=== PATIENT | male | born 1960 | race Caucasian/White ===

== ENCOUNTER 2019-07-17 19:38 | Emergency (ER) | payer OTHER, SELFPAY ==
[2019-07-17 19:40] VITALS: BP 186/101; PULSE 71; RESP 16; TEMP 36.7; O2SAT 100
[2019-07-17 21:53] VITALS: RESP 16
--- NOTE | 2019-07-17 22:16 | ED.URI ---
HPI - URI/Sore Throat General Chief Complaint: Upper Respiratory Infection Stated Complaint: fever, cough Time Seen by Provider: 07/17/19 22:16 Source: patient Mode of arrival: ambulatory Limitations: no limitations History of Present Illness HPI Narrative: A 59 y/o male presents to the ED with c/o a cough for 1 day. Pt states that he and his returned from a cruise to [place] and the [facility] on Sunday (4 days ago). Pt's became sick with a cough and a fever and then he became sick with similar symptoms shortly after. He reports fatigue, but denies N/V, a fever, rhinorrhea, SOB, wheezing, and smoking. Onset (ago): day(s) (1) Context: sick contacts () Related Data Allergies Allergy/AdvReac Type Severity Reaction Status Date / Time No Known Allergies Allergy Unknown Verified 07/17/19 21:57 Review of Systems Review of Systems: All systems reviewed & are unremarkable except as noted in HPI and below Constitutional: Constitutional: Reports fatigue and Denies fever(s) ENT: Comments: Denies: rhinorrhea Respiratory: Respiratory: Reports cough, Denies dyspnea and Denies wheezing Gastrointestinal: Gastrointestinal: Denies nausea and Denies vomiting PMFSH Past Medical History Medical History (Updated 07/18/19 @ 00:00 by Ashwin Mooney) GERD (gastroesophageal reflux disease) Wears glasses Surgical History Surgical History (Updated 07/17/19 @ 22:27 by Miriam Prabhakar) H/O inguinal hernia repair bilateral H/O: vasectomy Hx of cholecystectomy Family History Family History Mother Hypertension Social History Social History (Updated 07/17/19 @ 22:28 by Miriam Prabhakar) Smoking status: Never smoker Alcohol intake: never Comments PCP: Dr. Cline Exam Narrative: Exam Narrative: GENERAL: Well-appearing, well-nourished, and in no acute distress. HEAD: Normocephalic, atraumatic EYES: PERRLA and EOMI, conjunctiva clear without discharge EARS: TM's clear bilaterally without erythema or dullness NOSE: Nares clear, no rhinorrhea or epistaxis THROAT:Mucous membranes moist, Oropharynx normal without erythema, exudate, peritonsillar swelling or fluctuance NECK: Supple, without lymphadenopathy or mass RESPIRATORY: No respiratory distress, Airway patent, Respirations non-labored, Clear to auscultation without rales, rhonchi or wheeze HEART: Regular rate and rhythm. No murmur heard. Normal peripheral pulses. ABDOMEN: Soft, nontender, nondistended, normal active bowel sounds. No masses. No rebound or guarding, No organomegaly. EXTREMITIES: No edema, normal strength with full range of motion. SKIN: Warm, dry, normal color without rash NEURO: Alert and oriented x3. CN 2-12 grossly intact. No focal deficits. PSYCH: Normal mood and affect. Course Course Emergency Course: Patient presented with early signs of flu. His was found to be positive for influenza in ER today. PAtient is negative but will start him on tamiflu. PAtient understands and he is agreeable. Vital Signs Vital signs: Vital Signs Temperature 98.0 F 07/17/19 19:40 Pulse Rate 71 07/17/19 19:40 Respiratory Rate 16 07/17/19 19:40 Blood Pressure 186/101 H 07/17/19 19:40 Pulse Oximetry 100 07/17/19 19:40 Temperature 98.0 F 07/17/19 19:40 Pulse Rate 68 07/17/19 22:39 Respiratory Rate 20 07/17/19 22:39 Blood Pressure 167/100 H 07/17/19 22:39 Pulse Oximetry 99 07/17/19 22:39 MDM - URI/Sore Throat Lab Data Labs: Influenza A Screen Negative Reference Range: Negative Influenza B Screen Negative Reference Range: Negative Discharge Plan Discharge Clinical Impression: Viral infection Patient Disposition: Home, Self-Care Condition: Stable Instructions: Antibiotic Form, Influenza (ED), Viral Syndrome (ED) Additional Instructions: Today you were will be started on medication t
[2019-07-17 22:39] VITALS: BP 167/100; PULSE 68; RESP 20; O2SAT 99
== END 2019-07-17 22:40 | disposition home or self-care (01) ==
PROVIDERS: Emergency Provider General Practice; PCP Family Medicine Adolescent Medicine
DX: B34.9 Viral infection, unspecified (principal); K21.9 Gastro-esophageal reflux disease without esophagitis
CPT/HCPCS: 87804; 99283

== ENCOUNTER 2019-07-23 14:24 | Inpatient (IN) | payer OTHER, SELFPAY ==
[2019-07-23] VITALS (10 sets, daily range): BP systolic 168–194; BP diastolic 89–115; PULSE 83–104; RESP 16–23; TEMP 37.1–37.3; O2SAT 97–99; BMI 28.0
--- NOTE | ~2019-07-23 | CT_ITS ---
EXAMINATION: CT chest wo con DATE: 07/23/2019 15:37 INDICATION: Nodule. Worsening cough. TECHNIQUE: Computed tomography (CT) of the chest was performed without intravenous contrast. The dose -length product was 285.07 mGy-cm. Automated exposure control and iterative reconstruction technique were employed. COMPARISON: Chest x-ray dated 07/23/2019 FINDINGS: Heart size is normal. No thoracic lymphadenopathy. There is gynecomastia. No significant pl eural or pericardial effusion. There is a densely calcified granuloma in the right lower lobe account ing for the nodule seen on chest x-ray. There is a solid lingular mass with peripheral air bronchogra ms measuring 3.7 x 2.2 cm greatest axial dimension. There are patchy groundglass opacities throughout both lungs, suspicious for pneumonia. There is an 8 mm right lower lobe nodule, image 72. No endobro nchial lesions. Status post cholecystectomy. The upper abdomen is unremarkable. No osteolytic or oste oblastic lesions are present. IMPRESSION: 1. Solid 3.7 x 2.2 cm lingular mass, concerning for bronchogenic carcinoma. 8 mm right lower lobe nod ule. Cannot exclude metastatic disease. 2: Patchy areas of groundglass consolidation in both lungs, compatible with pneumonia. Reviewed, dictated and finalized at location A. IMPRESSION: 1. Solid 3.7 x 2.2 cm lingular mass, concerning for bronchogenic carcinoma. 8 m m right lower lobe nodule. Cannot exclude metastatic disease. 2: Patchy areas of groundglass consolidation in both lungs, compatible with pn eumonia.
--- NOTE | ~2019-07-23 | XR_ITS ---
EXAMINATION: XR chest 2V DATE: 07/23/2019 15:13 INDICATION: Cough. TECHNIQUE: Frontal and lateral views of the chest were obtained on 3 radiographs. COMPARISON: Chest single view 10/30/2010, CT abdomen and pelvis 05/06/2006 FINDINGS: There are airspace opacities in right lower lung zone and left midlung zone. There is a 1.5 cm nodule in right lower lobe overlying the diaphragm on the frontal view. No pleural effusion or pn eumothorax. The heart size is normal. Surgical clips in the right upper quadrant are likely from chol ecystectomy. IMPRESSION: 1. 1.5 cm nodule in right lung lower lobe suspicious for primary bronchogenic carcinoma. Noncontrast chest CT is recommended. I called this result to Eloy Aaron on 07/23/19 at 15:19. 2. Airspace opacities in right lower lung zone and left midlung zone suspicious for pneumonia. Reviewed, dictated and finalized at location A. IMPRESSION: 1. 1.5 cm nodule in right lung lower lobe suspicious for primary bronchogenic c arcinoma. Noncontrast chest CT is recommended. I called this result to Eloy moore on 07/23/19 at 15:19. 2. Airspace opacities in right lower lung zone and left midlung zone suspicious for pneumonia.
[2019-07-23] MEDS: ALBUTEROL SULFATE NEB 2.5 MG/0.5 ML INH 5 MG INHALATION ×2 (15:45→20:28)
[2019-07-23] MEDS: IPRATROPIUM BR 0.02% INH SOLN 0.5 MG/2.5 ML VIAL INHALATION ×2 (15:46→20:28)
--- NOTE | 2019-07-23 15:57 | ED.URI ---
HPI - URI/Sore Throat General Chief Complaint: Upper Respiratory Infection Stated Complaint: Worse cough Time Seen by Provider: 07/23/19 14:48 Source: patient Mode of arrival: ambulatory Limitations: no limitations History of Present Illness HPI Narrative: Patient is a 59-year-old male who presents with continued difficulty with breathing with productive cough congestion rhinorrhea sore throat body aches patient was initially seen in the emergency department and diagnosed with influenza patient has been taking [id number] medications and finished his Tamiflu with no improvement patient on arrival to emergency department in no distress patient notes he is unable to get anything up with his cough. Patient notes his is also currently being treated for pneumonia. Patient was seen on the fifth and notes that he was treated as a presumptive positive. Notes that his was positive for influenza. Patient did recently return from a cruise in the [place] Related Data Allergies Allergy/AdvReac Type Severity Reaction Status Date / Time No Known Allergies Allergy Unknown Verified 07/17/19 21:57 Review of Systems Review of Systems: All systems reviewed & are unremarkable except as noted in HPI and below PMFSH Past Medical History Medical History GERD (gastroesophageal reflux disease) Wears glasses Surgical History Surgical History H/O inguinal hernia repair bilateral H/O: vasectomy Hx of cholecystectomy Social History Social History Smoking status: Never smoker Alcohol intake: never Exam Narrative: Exam Narrative: GENERAL: Well-appearing, well-nourished, and in no acute distress. HEAD: Normocephalic, atraumatic. EYES: PERRLA and EOMI. ENT: Nares clear, no rhinorrhea or epistaxis. Mucous membranes moist. Oropharynx without tonsillar hypertrophy exudate or other lesions. NECK: Supple. No adenopathy or masses. CHEST: Diminished on auscultation. No respiratory distress. No wheezes rales or rhonchi HEART: Regular rate and rhythm. No murmur heard. Normal peripheral pulses. EXTREMITIES: Normal range of motion. No edema. SKIN: Warm, dry, no rash. NEURO: No focal deficits. Alert and oriented x3. PSYCH: Normal mood and affect. Course Course Emergency Course: Patient in the room in no distress aware of case findings treatment plan and diagnosis Consultations Consultation #1: Discussed case with hospitalist who is agreed to accept the patient Date: 07/23/19 Vital Signs Vital signs: Vital Signs Temperature 98.7 F 07/23/19 14:47 Pulse Rate 87 07/23/19 14:47 Respiratory Rate 22 H 07/23/19 14:47 Blood Pressure 185/115 H 07/23/19 14:47 Pulse Oximetry 98 07/23/19 14:47 Temperature 98.7 F 07/23/19 14:47 Pulse Rate 83 07/23/19 15:54 Respiratory Rate 16 07/23/19 15:54 Blood Pressure 185/115 H 07/23/19 14:47 Pulse Oximetry 98 07/23/19 14:47 MDM - URI/Sore Throat MDM Narrative Medical decision making narrative: Patient in the room in no distress with bilateral pneumonia will be placed in hospital. Antibiotics initiated in the emergency department. Infectious disease nurse was consulted Imaging Data Radiologist's impression: ITS Impressions Chest X-Ray 07/23/19 15:16 IMPRESSION: 1. 1.5 cm nodule in right lung lower lobe suspicious for primary bronchogenic carcinoma. Noncontrast chest CT is recommended. I called this result to Eloy Aaron on 07/23/19 at 15:19. 2. Airspace opacities in right lower lung zone and left midlung zone suspicious for pneumonia. Chest CT 07/23/19 15:41 IMPRESSION: 1. Solid 3.7 x 2.2 cm lingular mass, concerning for bronchogenic carcinoma. 8 mm right lower lobe nodule. Cannot exclude metastatic disease. 2: Patchy areas of groundglass consolidation in both lungs, compatible with p
[2019-07-23] MEDS: SODIUM CHLORIDE 0.9% IV 1,000 ML 999 ML IV CONT (16:08)
[2019-07-23 16:18] LABS: Basophils Percent Auto 0.3 % (0.2-1.2); Eosinophils Absolute Auto 0.2 K/mm3 (0-0.3); Eosinophils Percent Auto 1.4 % (0-4.4); Hematocrit 42.8 % (42.0-52.0); Hemoglobin 15.1 g/dL (14.0-18.0); Immature Granulocyte Absolute 0.05 K/mm3 (0.00-0.031); Immature Granulocyte Percent A 0.4 % (0-0.5); Lymphocytes Absolute Auto 1.75 K/mm3 (0.9-3.2); Lymphocytes Percent Auto 14.9 % (18.3-44.2); Mean Corpuscular HGB Conc 35.3 g/dl (32-36); Mean Corpuscular Hemoglobin 31.6 pg (26-34); Mean Corpuscular Volume 89.5 fl (80-100); Mean Platelet Volume 8.8 fl (7.4-10.4); Monocytes Absolute Auto 0.8 K/mm3 (0.1-0.6); Neutrophils Absolute Auto 8.9 K/mm3 (1.3-6.7); Platelet Count Result 195 k/mm3 (150-375); Red Blood Count 4.78 M/mm3 (4.6-6.20); Red Cell Distribution Width 12.3 % (11.5-14.5); White Blood Count 11.7 K/mm3 (4.5-10.0)
[2019-07-23 16:34] LABS: Alanine Aminotransferase 41 U/L (4-50); Albumin Level 4.5 g/dL (3.5-5.1); Alkaline Phosphatase 89 U/L (38-126); Aspartate Amino Transferase 28 U/L (17-59); Bilirubin,Total 1.5 mg/dL (0.2-1.3); Blood Urea Nitrogen 14 mg/dL (9-20); Calcium 9.1 mg/dL (8.4-10.2); Carbon Dioxide 31 mmol/L (22-30); Chloride 94 mmol/L (98-107); Estimated CRCL calculation 90 ml/min; Estimated Glomerular Filt Rate > 60; Glucose 101 mg/dL (75-110); Potassium 4.1 mmol/L (3.4-5.0); Sodium 135 mmol/L (137-145)
[2019-07-23] MEDS: LACTATED RINGERS 1,000 ML 125 ML IV CONT (18:25)
--- NOTE | 2019-07-23 20:19 | ADMGEN ---
This patient, Greg Carlin, was admitted to 2 Medical Room 247-. Patient/family oriented to hospital policies and general routines including ID bracelet, bed and alarms, visiting hours, pain management, procedures, bathroom and other care routines, personal items, smoking policy, room service/diet, and visiting hours. Valuables list has been completed. Information on how to activate the Rapid Response Team has been discussed. Patient/Family are encouraged to report perceived risks to care and to ask questions if they do not understand what they are told or what they should do.
[2019-07-23] MEDS: FAMOTIDINE 20 MG/2 ML VIAL IV PUSH (21:03)
--- NOTE | 2019-07-23 23:13 | PM.IMHP ---
H&P: HPI History of Present Illness Chief complaint: Cough Narrative: Date and time of patient contac: 07/23/2019 at 11:15 p.m. Greg Carlin is a 59 year old male without significant past medical history who presented to the ER via private vehicle for worsening cough. The patient and his had been on a celebrity [place] for a week and [place] patient's became ill with upper respiratory symptoms. His was brought to the ER on the and was diagnosed with influenza A. At that time patient was empirically started on Tamiflu but did not have a flu swab. The patient's then returned to the hospital and was admitted on the with bilateral pneumonia and hypoxia. The patient states that since his is been in the hospital he has been trying to drink plenty of fluids, [id number] vitamin C supplements (airborne) and completed his Tamiflu prescription yesterday. Despite these measures his cough had gotten progressively worse. He reports that his lung and ribs her when he is coughing. He cannot lay down as it makes is cough worse. He has not slept much in the last several days. He has been having joint aches and fatigue. He has had decreased appetite. He denies any nausea or vomiting. His urine has been darker than usual and he feels as if he is dehydrated. He has developed a mild frontal headache over the last 24 hours. He reported an improvement in his cough and shortness of breath with nebulizer treatments provided in the ER. His influenza swab was negative. He is a lifelong nonsmoker. X-ray performed in the ER demonstrated 1.5 cm nodule in the right lung lower lobe suspicious bronchogenic carcinoma and right lower lobe and left middle lung pneumonia. CT of the chest demonstrated solid 3.7 x 2.2 lingular mass concerning for bronchogenic carcinoma and 8 mm right lower lobe nodule. Patchy areas of ground-glass consolidation in both lungs compatible with pneumonia. Patient was admitted to medical floor in this setting. Review of Systems Review of Systems: Narrative: Except as documented in the HPI, all other systems were reviewed and are negative. [facility] Past Medical History Medical History (Updated 07/24/19 @ 02:54 by Xi Alcazar DO) GERD (gastroesophageal reflux disease) Wears glasses Surgical History Surgical History (Updated 03/11/20 @ 23:14 by Xi Alcazar DO) H/O inguinal hernia repair bilateral with recurrence with a second surgery on the right inguinal hernia whenever recurred in 2010 (performed at [facility]) H/O: vasectomy Hx of cholecystectomy Family History Family History (Updated 07/23/19 @ 20:27 by Lori Briseno RN) Mother Hypertension Father ALS (amyotrophic lateral sclerosis) Social History Social History (Updated 07/24/19 @ 02:47 by Xi Alcazar DO) Social History: Primary care physician: Dr. Mamadou Pfeiffer Code status: Full code Smoking status: Never smoker Alcohol intake: never Alcohol use details: Rarely drinks alcohol Substance use: never Substance use type: does not use Living arrangements: with family Additional living arrangements comments: The patient lives with his of over 30 years. 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 Gender identity (if verbalized by the patient): Male Spiritual care concerns: No Agree to blood products: Yes Meds Home Medications and Allergies Home Medications Medication Instructions Recorded Confirmed Type No Home Medications 07/23/19 07/23/19 History Allergies Allergy/AdvReac Type Severity Reaction Status Date / Time No Known Allergies Allergy Unknown Verified 07/17/19 21:57 Vital Signs Vital Signs - 24 hr 07/23/19 14:47 07/23/19 15:47 07/23/19 15:54 Temperature 98
[2019-07-24] VITALS (14 sets, daily range): BP systolic 121–154; BP diastolic 59–81; PULSE 78–118; RESP 16–20; TEMP 36.7–37.2; O2SAT 96–100
[2019-07-24] MEDS: ALBUTEROL SULFATE NEB 2.5 MG/0.5 ML INH 5 MG INHALATION ×4 (02:04→20:20)
[2019-07-24] MEDS: IPRATROPIUM BR 0.02% INH SOLN 0.5 MG/2.5 ML VIAL INHALATION ×4 (02:04→20:20)
[2019-07-24 06:11] LABS: Basophils Percent Auto 0.2 % (0.2-1.2); Eosinophils Absolute Auto 0.1 K/mm3 (0-0.3); Eosinophils Percent Auto 0.7 % (0-4.4); Hematocrit 37.6 % (42.0-52.0); Hemoglobin 12.9 g/dL (14.0-18.0); Immature Granulocyte Absolute 0.08 K/mm3 (0.00-0.031); Immature Granulocyte Percent A 0.6 % (0-0.5); Lymphocytes Absolute Auto 1.49 K/mm3 (0.9-3.2); Lymphocytes Percent Auto 11.9 % (18.3-44.2); Mean Corpuscular HGB Conc 34.3 g/dl (32-36); Mean Corpuscular Hemoglobin 31.2 pg (26-34); Mean Corpuscular Volume 90.8 fl (80-100); Mean Platelet Volume 9.1 fl (7.4-10.4); Monocytes Absolute Auto 1.3 K/mm3 (0.1-0.6); Monocytes Percent Auto 10.1 % (2.6-8.5); Neutrophils Absolute Auto 9.6 K/mm3 (1.3-6.7); Neutrophils Percent Auto 76.5 % (45.5-73.1); Platelet Count Result 208 k/mm3 (150-375); Red Blood Count 4.14 M/mm3 (4.6-6.20); Red Cell Distribution Width 12.5 % (11.5-14.5); White Blood Count 12.6 K/mm3 (4.5-10.0)
[2019-07-24 06:33] LABS: Blood Urea Nitrogen 11 mg/dL (9-20); Calcium 8.7 mg/dL (8.4-10.2); Carbon Dioxide 29 mmol/L (22-30); Chloride 96 mmol/L (98-107); Estimated CRCL calculation 75 ml/min; Estimated Glomerular Filt Rate > 60; Glucose 112 mg/dL (75-110); Potassium 3.6 mmol/L (3.4-5.0); Sodium 132 mmol/L (137-145)
[2019-07-24] MEDS: ENOXAPARIN 40 MG/0.4 ML SYRINGE SUB-Q (08:18)
[2019-07-24] MEDS: FAMOTIDINE 20 MG/2 ML VIAL IV PUSH ×2 (08:18→20:06)
--- NOTE | 2019-07-24 14:14 | PC.NURSE ---
Per Nito Avalos, okay to discontinue droplet precautions at this time.
[2019-07-24] MEDS: GUAIFENESIN/DEXTROMETHORPHAN 10 ML UDC 5 ML PO (16:41)
[2019-07-24] MEDS: BENZOCAINE/MENTHOL (*BKC) 18 EA LOZENGE 1 LOZENGE PO ×2 (18:06→20:08)
[2019-07-24] MEDS: LACTATED RINGERS 1,000 ML 125 ML IV CONT (18:11)
--- NOTE | 2019-07-24 18:24 | PM.IMPN ---
Progress Note: A&P Assessment and Plan (1) Pneumonia: Code(s): J18.9 - Pneumonia, unspecified organism Status: Acute Assessment and Plan: Likely post viral bilateral pneumonia. Recent travel Patient has been initiated on Rocephin azithromycin and vancomycin. Pt was started on tamiflu few days ago. Public health department states no further testing for coronavirus is necessary. Pt has persistent wet cough in the room. Take off respiratory droplet isolation. Complains of fatigue and ear fullness. Robutissin and throat drops prescribed to help with coughing symptoms. (2) Lung mass: Code(s): R91.8 - Other nonspecific abnormal finding of lung field Status: Acute Assessment and Plan: New lung mass. Patient knows about this from before, once xrays to be compared willing to follow with pulmology. and have lung biopsy later. Subjective Date/time seen: 07/24/19 18:24 Interval history: 59 year old male without significant past medical history who presented to the ER via private vehicle for worsening cough. The patient and his had been on a celebrity [place] a [place] and [place] patient's became ill with upper respiratory symptoms. His was brought to the ER on the and was diagnosed with influenza A. Patient was empirically started on Tamiflu but did not have a flu swab. The patient's then returned to the hospital and was admitted on the with bilateral pneumonia and hypoxia. Pt still having bad cough in the room and complains of ear fullness. CT chest shows- Solid 3.7 x 2.2 cm lingular mass, concerning for bronchogenic carcinoma. 8 mm right lower lobe nodule. Cannot exclude metastatic disease.2: Patchy areas of groundglass consolidation in both lungs, compatible with pneumonia. I will consult pulmology regarding this currently on IV vancomycin, rocephin and azithromycin. And breathing treatments. Review of Systems Review of Systems: All systems reviewed & are unremarkable except as noted in HPI and below Constitutional: Constitutional: Reports fatigue and Denies fever(s) ENT: Comments: Ear fullness Respiratory: Respiratory: Reports chest congestion, Reports cough and Denies dyspnea Exam Narrative: Exam Narrative: PHYSICAL EXAM: General: Unwell, tired with wet cough HEENT: Mucous membranes Neck: No significant lymphadenopathy Respiratory: Clear to auscultation bilaterally Cardiovascular: Normal S1-S2, sinus tachycardia, 2+ pulses bilateral radial and pedal Gastrointestinal: Soft, nontender, nondistended, positive bowel sounds Skin: No jaundice, no pallor, normal temperature Extremities: No clubbing, cyanosis or edema Neurological: Alert and oriented, speech is clear, no facial asymmetry Psychiatric: Appropriate mood and affect, pleasant and cooperative Objective Data Vital Signs Vital Signs: Vital Signs - 24 hr 07/23/19 19:00 07/23/19 19:38 07/23/19 19:51 Temperature Pulse Rate 100 96 93 Respiratory Rate 23 H 20 20 Blood Pressure 179/95 H 183/95 H 168/97 H Pulse Oximetry 99 98 99 07/23/19 20:00 07/23/19 20:28 07/24/19 02:00 Temperature 37.3 C 37.1 C Pulse Rate 104 H 93 106 H Respiratory Rate 20 18 20 Blood Pressure 179/92 H 138/81 Pulse Oximetry 97 97 07/24/19 02:04 07/24/19 02:13 07/24/19 04:00 Temperature 36.9 C Pulse Rate 106 H 110 H 118 H Respiratory Rate 16 18 16 Blood Pressure 121/68 Pulse Oximetry 96 07/24/19 09:17 07/24/19 09:26 07/24/19 10:00 Temperature 36.7 C Pulse Rate 81 84 92 Respiratory Rate 18 20 20 Blood Pressure 135/59 L Pulse Oximetry 96 07/24/19 14:00 07/24/19 15:36 07/24/19 15:44 Temperature 36.7 C Pulse Rate 79 84 84 Respiratory Rate 18 20 18 Blood Pressure 145/79 H Pulse Oximetry 100 Intake/Output Intake/Output: Intake & Output 07/21/19 07/22/19 07/23/19 07/24/19 23:59 23:59 23:59 23:59 Intake Total 1999 4479 Output Total
[2019-07-25] VITALS (12 sets, daily range): BP systolic 148–158; BP diastolic 76–86; PULSE 64–86; RESP 16–20; TEMP 36.1–36.4; O2SAT 98–99
[2019-07-25] MEDS: IPRATROPIUM BR 0.02% INH SOLN 0.5 MG/2.5 ML VIAL INHALATION ×4 (01:59→19:20)
[2019-07-25] MEDS: ALBUTEROL SULFATE NEB 2.5 MG/0.5 ML INH 5 MG INHALATION ×4 (01:59→19:20)
[2019-07-25] MEDS: LACTATED RINGERS 1,000 ML 125 ML IV CONT (05:14)
[2019-07-25] MEDS: BENZOCAINE/MENTHOL (*BKC) 18 EA LOZENGE 1 LOZENGE PO ×3 (05:15→20:58)
[2019-07-25 08:38] LABS: Vancomycin Trough 10.5 ug/mL (10.0-20.0)
[2019-07-25] MEDS: FAMOTIDINE 20 MG/2 ML VIAL IV PUSH ×2 (09:28→20:57)
[2019-07-25] MEDS: ENOXAPARIN 40 MG/0.4 ML SYRINGE SUB-Q (09:28)
[2019-07-25 11:17] LABS: Influenza Control Positive
--- NOTE | 2019-07-25 17:02 | PM.IMPN ---
Progress Note: A&P Assessment and Plan (1) Pneumonia: Code(s): J18.9 - Pneumonia, unspecified organism Status: Acute Assessment and Plan: Likely post viral bilateral pneumonia. Recent travel Patient has been initiated on Rocephin azithromycin and vancomycin. Pt was started on tamiflu few days ago. Public health department states no further testing for coronavirus is necessary. Pt has persistent wet cough in the room. Complains of fatigue and ear fullness. Robutissin and throat drops prescribed to help with coughing symptoms. Pt is symptomatic with cough awaiting further tests pt to go back on respiratory isolation until testing results are back. (2) Lung mass: Code(s): R91.8 - Other nonspecific abnormal finding of lung field Status: Acute Assessment and Plan: New lung mass. Patient knows about this from before, once xrays to be compared willing to follow with pulmology. and have lung biopsy later. Subjective Date/time seen: 07/25/19 17:02 Interval history: 59 year old male without significant past medical history who presented to the ER via private vehicle for worsening cough. The patient and his had been on a celebrity [place] for a [place] and [place] patient's became ill with upper respiratory symptoms. His was brought to the ER on the and was diagnosed with influenza A. Patient was empirically started on Tamiflu but did not have a flu swab. The patient's then returned to the hospital and was admitted on the with bilateral pneumonia and hypoxia. Pt still having bad cough in the room and complains of ear fullness. CT chest shows- Solid 3.7 x 2.2 cm lingular mass, concerning for bronchogenic carcinoma. 8 mm right lower lobe nodule. Cannot exclude metastatic disease.2: Patchy areas of groundglass consolidation in both lungs, compatible with pneumonia. I will consult pulmology regarding this currently on IV vancomycin, rocephin and azithromycin. And breathing treatments. I have ordered flu screen, urinary legionella, mycoplasma and Strep and chlyamdia panel on the patient to investigate his pneumonia further. Ongoing cough and fatigue. Review of Systems Review of Systems: All systems reviewed & are unremarkable except as noted in HPI and below Respiratory: Respiratory: Reports cough and Reports dyspnea Exam Narrative: Exam Narrative: PHYSICAL EXAM: General: Unwell, tired with wet cough HEENT: Mucous membranes Respiratory: Clear to auscultation bilaterally Cardiovascular: Normal S1-S2, sinus tachycardia, 2+ pulses bilateral radial and pedal Gastrointestinal: Soft, nontender, nondistended, positive bowel sounds Skin: No jaundice, no pallor, normal temperature Extremities: No clubbing, cyanosis or edema Neurological: Alert and oriented, speech is clear, no facial asymmetry Psychiatric: Appropriate mood and affect, pleasant and cooperative Objective Data Vital Signs Vital Signs: Vital Signs - 24 hr 07/24/19 18:00 07/24/19 20:20 07/24/19 20:26 Temperature 37.2 C Pulse Rate 83 82 80 Respiratory Rate 18 18 18 Blood Pressure 154/79 H Pulse Oximetry 99 07/24/19 22:00 07/25/19 01:59 07/25/19 02:00 Temperature 36.7 C 36.4 C Pulse Rate 78 67 76 Respiratory Rate 16 18 16 Blood Pressure 143/77 H 152/76 H Pulse Oximetry 98 99 07/25/19 02:04 07/25/19 06:00 07/25/19 09:19 Temperature 36.1 C L Pulse Rate 68 64 76 Respiratory Rate 18 16 16 Blood Pressure 148/77 H Pulse Oximetry 99 07/25/19 09:29 07/25/19 14:00 07/25/19 14:57 Temperature 36.3 C L Pulse Rate 79 81 83 Respiratory Rate 16 18 16 Blood Pressure 149/79 H Pulse Oximetry 99 07/25/19 15:08 Temperature Pulse Rate 86 Respiratory Rate 16 Blood Pressure Pulse Oximetry Intake/Output Intake/Output: Intake & Output 07/22/19 07/23/19 07/24/19 07/25/19 23:59 23:59 23:59 23:59 Intake Total 1999 4723 0127 Output [place]ota
[2019-07-25] MEDS: GUAIFENESIN/DEXTROMETHORPHAN 10 ML UDC 5 ML PO (20:58)
[2019-07-26] VITALS (12 sets, daily range): BP systolic 131–144; BP diastolic 76–85; PULSE 66–87; RESP 16–20; TEMP 36.1–36.7; O2SAT 95–100
[2019-07-26] MEDS: ALBUTEROL SULFATE NEB 2.5 MG/0.5 ML INH 5 MG INHALATION ×4 (01:21→20:39)
[2019-07-26] MEDS: IPRATROPIUM BR 0.02% INH SOLN 0.5 MG/2.5 ML VIAL INHALATION ×4 (01:21→20:38)
[2019-07-26] MEDS: FAMOTIDINE 20 MG/2 ML VIAL IV PUSH ×2 (08:52→20:11)
[2019-07-26] MEDS: ENOXAPARIN 40 MG/0.4 ML SYRINGE SUB-Q (08:52)
[2019-07-26] MEDS: GUAIFENESIN/DEXTROMETHORPHAN 10 ML UDC 5 ML PO (08:52)
[2019-07-26] MEDS: BENZOCAINE/MENTHOL (*BKC) 18 EA LOZENGE 1 LOZENGE PO ×2 (17:06→20:12)
--- NOTE | 2019-07-26 17:44 | PM.IMPN ---
Progress Note: A&P Assessment and Plan (1) Pneumonia: Code(s): J18.9 - Pneumonia, unspecified organism Status: Acute Assessment and Plan: Likely post viral bilateral pneumonia. Recent travel Patient has been initiated on Rocephin azithromycin and vancomycin. Pt was started on tamiflu few days ago. Public health department states no further testing for coronavirus is necessary. Pt has persistent wet cough in the room. Complains of fatigue and ear fullness. Robutissin and throat drops prescribed to help with coughing symptoms. Pt is symptomatic with cough awaiting further tests pt to go back on respiratory isolation until testing results are back. Sputum culture etc. I will add flonase to his regime (2) Lung mass: Code(s): R91.8 - Other nonspecific abnormal finding of lung field Status: Acute Assessment and Plan: New lung mass. Patient knows about this from before, once xrays to be compared willing to follow with pulmology. and have lung biopsy later. Will follow with Makeda Subjective Date/time seen: 07/26/19 17:44 Interval history: 59 year old male without significant past medical history who presented to the ER via private vehicle for worsening cough. The patient and his had been on a celebrity [place] a [place] and the [place] the patient's became ill with upper respiratory symptoms. His was brought to the ER on the and was diagnosed with influenza A. Patient was empirically started on Tamiflu but did not have a flu swab. The patient's then returned to the hospital and was admitted on the with bilateral pneumonia and hypoxia. Pt still having bad cough in the room and complains of ear fullness. CT chest shows- Solid 3.7 x 2.2 cm lingular mass, concerning for bronchogenic carcinoma. 8 mm right lower lobe nodule. Cannot exclude metastatic disease.2: Patchy areas of groundglass consolidation in both lungs, compatible with pneumonia. I will consult pulmology regarding this currently on IV vancomycin, rocephin and azithromycin. And breathing treatments. I have ordered flu screen, urinary legionella, mycoplasma and Strep and chlyamdia panel on the patient to investigate his pneumonia further. Ongoing cough and fatigue. Feeling better mild cough and nasal and ear congestion Review of Systems Review of Systems: All systems reviewed & are unremarkable except as noted in HPI and below Constitutional: Constitutional: Reports fatigue and Denies fever(s) ENT: Comments: nasal and ear congestion Cardiovascular: Cardiovascular: Reports dyspnea Respiratory: Respiratory: Reports chest congestion, Reports cough and Reports dyspnea Endocrine: Endocrine: Reports fatigue Exam Narrative: Exam Narrative: PHYSICAL EXAM: General: Looks better, no cough HEENT: Mucous membranes Neurological: Alert and oriented, speech is clear, no facial asymmetry Psychiatric: Appropriate mood and affect, pleasant and cooperative Objective Data Vital Signs Vital Signs: Vital Signs - 24 hr 07/25/19 19:20 07/25/19 19:30 07/25/19 22:00 Temperature 36.4 C L Pulse Rate 84 84 79 Respiratory Rate 16 16 20 Blood Pressure 158/86 H Pulse Oximetry 98 07/26/19 01:22 07/26/19 01:35 07/26/19 06:00 Temperature 36.1 C L Pulse Rate 85 87 66 Respiratory Rate 16 16 20 Blood Pressure 131/76 Pulse Oximetry 98 07/26/19 08:00 07/26/19 09:37 07/26/19 09:44 Temperature Pulse Rate 80 78 80 Respiratory Rate 20 20 20 Blood Pressure Pulse Oximetry 98 07/26/19 14:00 07/26/19 15:39 07/26/19 15:58 Temperature 36.7 C Pulse Rate 67 82 86 Respiratory Rate 18 20 20 Blood Pressure 141/83 H Pulse Oximetry 95 Intake/Output Intake/Output: Intake & Output 07/23/19 07/24/19 07/25/19 07/26/19 23:59 23:59 23:59 23:59 Intake Total 1999 2656 6021 4304 Output Total 2758 7752 2778 Balance 1999 Meds/Results Medications
[2019-07-26] MEDS: FLUTICASONE PROPIONATE 0.05% NA SPR 16 GM BTL (*BKC) 1 SPRAY NASAL (20:11)
[2019-07-27] VITALS (12 sets, daily range): BP systolic 126–139; BP diastolic 73–87; PULSE 64–85; RESP 18–21; TEMP 36.2–37.1; O2SAT 97–100
[2019-07-27] MEDS: BENZOCAINE/MENTHOL (*BKC) 18 EA LOZENGE 1 LOZENGE PO (00:55)
[2019-07-27] MEDS: IPRATROPIUM BR 0.02% INH SOLN 0.5 MG/2.5 ML VIAL INHALATION ×4 (02:46→20:19)
[2019-07-27] MEDS: ALBUTEROL SULFATE NEB 2.5 MG/0.5 ML INH 5 MG INHALATION ×4 (02:46→20:19)
[2019-07-27] MEDS: FLUTICASONE PROPIONATE 0.05% NA SPR 16 GM BTL (*BKC) 1 SPRAY NASAL ×2 (08:49→20:46)
[2019-07-27] MEDS: FAMOTIDINE 20 MG/2 ML VIAL IV PUSH ×2 (08:49→20:45)
[2019-07-27] MEDS: ENOXAPARIN 40 MG/0.4 ML SYRINGE SUB-Q (08:49)
--- NOTE | 2019-07-27 13:32 | PM.IMPN ---
Progress Note: A&P Assessment and Plan (1) Pneumonia: Code(s): J18.9 - Pneumonia, unspecified organism Status: Acute Assessment and Plan: 59 year old male without significant past medical history who presented to the ER via private vehicle for worsening cough. The patient and his had been on a celebrity [place] for [place] and the [place] the patient[place] became ill with upper respiratory symptoms. His was brought to the ER on the and was diagnosed with influenza A. Patient was empirically started on Tamiflu but did not have a flu swab. The patient's then returned to the hospital and was admitted on the with bilateral pneumonia and hypoxia. Pt still having bad cough in the room and complains of ear fullness. CT chest shows- Solid 3.7 x 2.2 cm lingular mass, concerning for bronchogenic carcinoma. 8 mm right lower lobe nodule. Cannot exclude metastatic disease.2: Patchy areas of groundglass consolidation in both lungs, compatible with pneumonia. I will consult pulmology regarding this currently on IV vancomycin, rocephin and azithromycin. And breathing treatments. I have ordered flu screen, urinary legionella, mycoplasma and Strep and chlyamdia panel on the patient to investigate his pneumonia further. Today patient states the cough is better compared to when he arrived denies any fever or chills shortness of breath is also improved, Will consult Dr. Leon for further recommendation possibly biopsy of lung mass to further evaluate he may need oncology con (2) Lung mass: Code(s): R91.8 - Other nonspecific abnormal finding of lung field Status: Acute Assessment and Plan: New lung mass. Patient knows about this from before, once xrays to be compared willing to follow with pulmology. and have lung biopsy later. Will follow with Makeda Subjective Date/time seen: 07/27/19 13:32 Interval history: 59 year old male without significant past medical history who presented to the ER via private vehicle for worsening cough. The patient and his had been on a celebrity [place] for a [place] and the [place] the patient's became ill with upper respiratory symptoms. His was brought to the ER on the and was diagnosed with influenza A. Patient was empirically started on Tamiflu but did not have a flu swab. The patient's then returned to the hospital and was admitted on the with bilateral pneumonia and hypoxia. Pt still having bad cough in the room and complains of ear fullness. CT chest shows- Solid 3.7 x 2.2 cm lingular mass, concerning for bronchogenic carcinoma. 8 mm right lower lobe nodule. Cannot exclude metastatic disease.2: Patchy areas of groundglass consolidation in both lungs, compatible with pneumonia. I will consult pulmology regarding this currently on IV vancomycin, rocephin and azithromycin. And breathing treatments. I have ordered flu screen, urinary legionella, mycoplasma and Strep and chlyamdia panel on the patient to investigate his pneumonia further. Today patient states the cough is better compared to when he arrived denies any fever or chills shortness of breath is also improved, Will consult Dr. Leon for further recommendation possibly biopsy of lung mass to further evaluate he may need oncology con Review of Systems Review of Systems: All systems reviewed & are unremarkable except as noted in HPI and below Exam Const: General: comfortable and no acute distress HENMT: General nose exam: Normal nares present Mouth: Yes moist mucous membranes Eyes: General: appearance normal, both eyes and all related structures Sclera: sclerae normal Neck: Neck: supple Resp: Other: Bilateral fair air entry with rhonchi Cardio: Rate: regular rate Rhythm: regular rhythm GI: Auscultation: normal bowel sounds Skin: General skin exam: normal color Neuro: Speech: normal speech Sensory Exam: normal sensat
--- NOTE | 2019-07-27 18:34 | PM.CNPUL ---
Assessment and Plan Assessment and plan (1) Abnormal chest CT: Code(s): R93.89 - Abnormal findings on diagnostic imaging of other specified body structures Status: Acute Assessment and Plan: Lingular 3.7 x 2.2 cm nodule, smooth edges, never smoked, 59 yo, father had lung cancer at age 64, and he also wa a nonsmoker. He has an 8 mm peripheral nodule in the right lung, and says that he was told he had a nodule in 2013 with a syncopal episode. Says that Dr. Pfeiffer has the records. There is nothing in our system as far as a chest CT. He may follow up by calling for an appointment after discharge. We will follow this nodule and arrange biopsy if indicated. This nodule is close to the chest wall and can be biopsied with CT guidance. (2) Pneumonia: Code(s): J18.9 - Pneumonia, unspecified organism Status: Acute Assessment and Plan: Bilateral infiltrates, nonproductive cough, shortness of breath with pre-admission Tamiflu Mar 5 in the context of his having Influenza A (+) swab with a more severe illness with high fever, hypoxemia, diffuse infiltrates consistent with a viral process. All his microbiologic studies are pending. He is clinically improved, on room air, stable for discharge when you see fit. History of Present Illness History of Present Illness Consult date: 07/27/19 Requesting physician: Aranza De Leon MD Chief complaint: Cough Narrative: Thank you for the consultation. Please see dictation#[id number] [facility] Past Medical History Medical History (Updated 07/27/19 @ 20:04 by Yesi Leon MD) GERD (gastroesophageal reflux disease) Wears glasses Surgical History Surgical History (Updated 07/23/19 @ 23:14 by Xi Alcazar DO) H/O inguinal hernia repair bilateral with recurrence with a second surgery on the right inguinal hernia whenever recurred in 2010 (performed at [facility]) H/O: vasectomy Hx of cholecystectomy Family History Family History (Updated 07/23/19 @ 20:27 by Lori Briseno RN) Mother Hypertension Father ALS (amyotrophic lateral sclerosis) Social History Social History (Updated 07/24/19 @ 02:47 by Xi Alcazar DO) Social History: Primary care physician: Dr. Mamadou Pfeiffer Code status: Full code Smoking status: Never smoker Alcohol intake: never Alcohol use details: Rarely drinks alcohol Substance use: never Substance use type: does not use Living arrangements: with family Additional living arrangements comments: The patient lives with his of over 30 years. 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 Gender identity (if verbalized by the patient): Male Spiritual care concerns: No Agree to blood products: Yes Meds Home Medications and Allergies Home Medications Medication Instructions Recorded Confirmed Type No Home Medications 07/23/19 07/23/19 History Allergies Allergy/AdvReac Type Severity Reaction Status Date / Time No Known Allergies Allergy Unknown Verified 07/17/19 21:57 Vital Signs Vital Signs - 24 hr 07/26/19 20:39 07/26/19 20:49 07/26/19 22:00 Temperature 36.5 C Pulse Rate 76 78 75 Respiratory Rate 20 20 20 Blood Pressure 144/85 H Pulse Oximetry 100 07/27/19 02:46 07/27/19 02:56 07/27/19 06:00 Temperature 36.2 C L Pulse Rate 74 78 64 Respiratory Rate 20 20 18 Blood Pressure 126/73 Pulse Oximetry 97 07/27/19 08:00 07/27/19 09:07 07/27/19 09:21 Temperature Pulse Rate 80 79 80 Respiratory Rate 18 18 18 Blood Pressure Pulse Oximetry 97 07/27/19 14:00 07/27/19 15:44 07/27/19 15:51 Temperature 36.4 C L Pulse Rate 72 85 77 Respiratory Rate
[2019-07-27] MEDS: GUAIFENESIN/DEXTROMETHORPHAN 10 ML UDC 5 ML PO (19:52)
--- NOTE | 2019-07-28 01:24 | CONS_ITS ---
DATE OF CONSULTATION: 07/27/2019 REASON FOR CONSULTATION: Lung mass/abnormal chest CT. HISTORY: This is a 59-year-old male, never smoker, who is in excellent health. He has no underlying lung disease. He and his went on a cruise to [place] and [facility]. They return to the [facility] on July 12. On July 13, , and , they were at a conference in [place]. His was too sick to fly, so he rented a car to drive back to this area. On July 16, her symptoms were worsening. She had a fever, cough with short of breath with fatigue. They both presented to the emergency department, were given medications to take at home. They were both taking large amounts of vitamin C and multivitamins. His worsened and was admitted on July 20Sunday, with worsening symptoms. Her influenza A swab was positive. The patient was empirically started on Tamiflu, but he did not have the influenza testing. He was on Tamiflu after their initial ER visit. His had bilateral pneumonia and hypoxia. He worsened and was admitted on the . He was having increasing coughing without sputum production, 1 day of sore throat, fatigue, and rib pains from excessive coughing. He had a mild frontal headache. His x-ray showed a 1.5 cm nodule in the right lower lung. A CT of the chest showed a 3.7 x 2.2 nodule in the lingula. There is also an 8 mm nodule in the right peripheral lung field. In addition, he has air bronchograms and patchy infiltrates in both lungs. The patient states that in 2012 or , he had an episode of syncope. Workup at that time included a chest x-ray and he was told he had a lung nodule. He never had any further workup. The patient is a lifelong nonsmoker. His father was a kelly, had lung cancer at age 64, but was treated and ended up dying at age 83 from ALS. The patient has no prior history of malignancy. 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 He has never had a flu shot. He does not have any chronic coughing and has never had hemoptysis. He feels much better compared to his admission. His initial white blood cell count was 11.7 with a mild left shift, 76 neutrophils. He had mild hyponatremia 132 without any GI symptoms. He has had multiple viral serologies ordered and these are currently pending. ALLERGIES: NO KNOWN DRUG ALLERGIES. MEDICATIONS: No chronic home medications. He does take high-dose vitamin C and was on Tamiflu prophylaxis prior to this admission. He started on July 16. Current hospital medications: 1. Albuterol nebulize 5 mg q.6 hours. 2. Azithromycin 250 mg IV q.24 hours. 3. Cough drops p.r.n. sore throat. 4. Ceftriaxone 1 g IV daily. 5. Enoxaparin 40 mg subcu daily. 6. Pepcid 20 mg IV q.12 hours. 7. Fluticasone nasal spray 0.05% 1 spray each nostril q.12 hours. 8. Guaifenesin with dextromethorphan 5 mL t.i.d. p.r.n. cough. 9. Ipratropium 0.02% nebulized q.6 hours. 10. Vancomycin per pharmacy protocol. PAST MEDICAL HISTORY: Gastroesophageal reflux disease. PAST SURGICAL HISTORY: 1. Inguinal hernia repair, bilateral with a repeat surgery on the right in 2010. 2. History of vasectomy and a varicocele. 3. History of cholecystectomy. 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 He lives at home with his . They have grown children. FAMILY HISTORY: Father at 83 from ALS. He also had lung cancer taken out at age 64. Mother had hypertension. REVIEW OF SYSTEMS: Prior to this illness, his weight was stable. He was in good shape. No shortness of breath, unlimited exercise capacity. He only had sore throat for 1 day. He had no leg swelling. The remainder of the 14-point review of systems is negative. PHYSICAL EXAMINATION: VITAL SIGNS: Height 1.91 m, weight 101.8 kg, temperature is 36.2, pulse 80, re
[2019-07-28 02:08] VITALS: PULSE 74; RESP 18
[2019-07-28] MEDS: IPRATROPIUM BR 0.02% INH SOLN 0.5 MG/2.5 ML VIAL INHALATION ×2 (02:08→08:40)
[2019-07-28] MEDS: ALBUTEROL SULFATE NEB 2.5 MG/0.5 ML INH 5 MG INHALATION ×2 (02:08→08:40)
[2019-07-28 02:20] VITALS: PULSE 79; RESP 18
[2019-07-28] MEDS: GUAIFENESIN/DEXTROMETHORPHAN 10 ML UDC 5 ML PO (02:31)
[2019-07-28 05:44] LABS: Blood Urea Nitrogen 17 mg/dL (9-20); Calcium 8.8 mg/dL (8.4-10.2); Carbon Dioxide 31 mmol/L (22-30); Chloride 102 mmol/L (98-107); Estimated CRCL calculation 69 ml/min; Estimated Glomerular Filt Rate > 60; Glucose 103 mg/dL (75-110); Potassium 3.9 mmol/L (3.4-5.0); Sodium 136 mmol/L (137-145)
[2019-07-28 05:45] LABS: Hemoglobin 13.3 g/dL (14.0-18.0); Mean Corpuscular Volume 88.6 fl (80-100); Mean Platelet Volume 8.5 fl (7.4-10.4); Platelet Count Result 276 k/mm3 (150-375); Red Blood Count 4.29 M/mm3 (4.6-6.20)
[2019-07-28 06:00] VITALS: BP 120/69; PULSE 89; RESP 20; TEMP 36.8; O2SAT 98
[2019-07-28 08:41] VITALS: PULSE 80; RESP 20
[2019-07-28 08:52] VITALS: PULSE 82; RESP 20
[2019-07-28] MEDS: ENOXAPARIN 40 MG/0.4 ML SYRINGE SUB-Q (09:28)
[2019-07-28] MEDS: FLUTICASONE PROPIONATE 0.05% NA SPR 16 GM BTL (*BKC) 1 SPRAY NASAL (09:29)
[2019-07-28] MEDS: FAMOTIDINE 20 MG/2 ML VIAL IV PUSH (09:29)
--- NOTE | 2019-07-28 09:33 | PM.DS ---
DS: Diagnosis Admitting Diagnosis Admitting Diagnosis: Pneumonia, unspecified organism Discharge Diagnosis (1) Pneumonia: Code(s): J18.9 - Pneumonia, unspecified organism Status: Acute Assessment and Plan: 59 year old male without significant past medical history who presented to the ER via private vehicle for worsening cough. The patient and his had been on a celebrity [place] for a [place] and the [place] the patient's became ill with upper respiratory symptoms. His was brought to the ER on the and was diagnosed with influenza A. Patient was empirically started on Tamiflu but did not have a flu swab. The patient's then returned to the hospital and was admitted on the with bilateral pneumonia and hypoxia. Pt still having bad cough in the room and complains of ear fullness. CT chest shows- Solid 3.7 x 2.2 cm lingular mass, concerning for bronchogenic carcinoma. 8 mm right lower lobe nodule. Cannot exclude metastatic disease.2: Patchy areas of groundglass consolidation in both lungs, compatible with pneumonia. I will consult pulmology regarding this currently on IV vancomycin, rocephin and azithromycin. And breathing treatments. I have ordered flu screen, urinary legionella, mycoplasma and Strep and chlyamdia panel on the patient to investigate his pneumonia further. Today patient states the cough is better compared to when he arrived denies any fever or chills shortness of breath is also improved, Will consult Dr. Leon for further recommendation possibly biopsy of lung mass to further evaluate he may need oncology con (2) Lung mass: Code(s): R91.8 - Other nonspecific abnormal finding of lung field Status: Acute Assessment and Plan: New lung mass. Patient knows about this from before, once xrays to be compared willing to follow with pulmology. and have lung biopsy later. Will follow with Makeda DS: Summary Hospital Course Reason for hospitalization: Greg Carlin is a 59 year old male without significant past medical history who presented to the ER via private vehicle for worsening cough. The patient and his had been on a celebrity [place] for a [place] and the [place] the patient's became ill with upper respiratory symptoms. His was brought to the ER on the and was diagnosed with influenza A. At that time patient was empirically started on Tamiflu but did not have a flu swab. The patient's then returned to the hospital and was admitted on the with bilateral pneumonia and hypoxia. The patient states that since his is been in the hospital he has been trying to drink plenty of fluids, [id number] vitamin C supplements (airborne) and completed his Tamiflu prescription yesterday. Despite these measures his cough had gotten progressively worse. He reports that his lung and ribs her when he is coughing. He cannot lay down as it makes is cough worse. He has not slept much in the last several days. He has been having joint aches and fatigue. He has had decreased appetite. He denies any nausea or vomiting. His urine has been darker than usual and he feels as if he is dehydrated. He has developed a mild frontal headache over the last 24 hours. He reported an improvement in his cough and shortness of breath with nebulizer treatments provided in the ER. His influenza swab was negative. He is a lifelong nonsmoker. X-ray performed in the ER demonstrated 1.5 cm nodule in the right lung lower lobe suspicious bronchogenic carcinoma and right lower lobe and left middle lung pneumonia. CT of the chest demonstrated solid 3.7 x 2.2 lingular mass concerning for bronchogenic carcinoma and 8 mm right lower lobe nodule. Patchy areas of ground-glass consolidation in both lungs compatible with pneumonia. Patient was admitted to medical floor in this setting. Hospital Course: 59 year old male without significant past medi
[2019-07-28 15:05] LABS: Legionella pneumophila Ag Ur Not Detected (Not Detected)
[2019-07-28 15:19] LABS: Pneumococcal Antigen Urine Not Detected (Not Detected)
== END 2019-07-28 11:50 | disposition home or self-care (01) | DRG 139 ==
LOC: ANHED 18:05 → ANH2MED 19:03
PROVIDERS: Emergency Medicine Emergency Medical Services; Family Medicine; Admitting Provider Hospitalist; Emergency Provider Emergency Medicine; PCP Family Medicine Adolescent Medicine; Visit Provider Family Medicine
DX: J18.9 Pneumonia, unspecified organism (principal); R91.1 Solitary pulmonary nodule; K21.9 Gastro-esophageal reflux disease without esophagitis; Z90.49 Acquired absence of other specified parts of digestive tract
CPT/HCPCS: 36415; 71046; 71250; 80048; 80053; 80202; 83605; 85025; 85027; 86738; 87040; 87070; 87205; 87252; 87449; 87486; 87804; 87899; 94640; 96361; 96365; 96366; 96367; 96372; 96375; 96376; 99285; A9270; G0378; G0379; J0456; J0696; J1650; J3370; J7030; J7120

== ENCOUNTER 2020-01-26 10:42 | Outpatient (CLI) | payer OTHER, SELFPAY ==
--- NOTE | ~2020-01-26 | CT_ITS ---
EXAMINATION:CT chest wo con DATE: 01/26/2020 11:00 INDICATION: Left lung mass. TECHNIQUE: Computed tomography (CT) of the chest was performed without intravenous contrast. Automate d exposure control and iterative reconstruction technique were employed. The dose-length product (DLP ) was 214.23 mGy-cm. COMPARISON: Chest CT 07/23/2019, CT abdomen and pelvis 05/06/2006 FINDINGS: There is mild scarring at the lung apices. Calcified pulmonary nodules and calcified right hilar lymph nodes are consistent with old granulomatous disease. There is a 7 mm nodule in right lowe r lobe, stable from 05/06/2006. There is a 6 mm nodule in right middle lobe, stable from 05/06/2006. There is a 4 mm nodule at left major fissure. There are a few 2-3 mm nodules in the lungs. No pleural effusion. The heart size is normal. There are coronary artery calcifications. No pericardial effusio n. There is bilateral gynecomastia. There are changes of cholecystectomy. There is mild thoracic spon dylosis. IMPRESSION: 1. Stable pulmonary nodules, consistent with granulomatous disease. Reviewed, dictated and finalized at location A.
== END 2020-01-26 10:43 | disposition home or self-care (01) ==
PROVIDERS: PCP Family Medicine Adolescent Medicine; Visit Provider Family Medicine Adolescent Medicine
DX: R91.8 Other nonspecific abnormal finding of lung field (principal)
CPT/HCPCS: 71250

== ENCOUNTER 2020-03-03 03:52 | Outpatient (CLI) | payer OTHER, SELFPAY ==
[2020-03-03 19:05] LABS: SARS-CoV-2 RNA PCR Negative
== END 2020-03-03 03:53 | disposition home or self-care (01) ==
LOC: ANHCOVIDDT 03:53
PROVIDERS: PCP Family Medicine Adolescent Medicine; Visit Provider Internal Medicine Gastroenterology
DX: Z01.812 Encounter for preprocedural laboratory examination (principal); Z20.828 Contact with and (suspected) exposure to other viral communicable diseases
CPT/HCPCS: 87635; C9803; U0003

== ENCOUNTER 2020-03-05 01:49 | Day surgery (SDC) | payer OTHER, SELFPAY ==
[2020-03-01 11:48] VITALS: BMI 25.4
[2020-03-05 09:00] VITALS: BP 159/94; PULSE 59; RESP 18; TEMP 36.4; O2SAT 100; BMI 24.7
[2020-03-05] MEDS: LACTATED RINGERS 1,000 ML 150 ML IV CONT (09:11)
--- NOTE | 2020-03-05 09:12 | WPDANESEPPF ---
Anes - Initial Pre Proc Eval Procedure: Operation Date: 03/05/20 09:30 Proposed Procedures p Esophagogastroduodenoscopy & Screening Colonoscopy - Jose Gould MD Date/Time: 03/05/20 09:12 Surgeon: Jose Gould MD Pre Op Diagnosis: Dysphagia/ Neoplasm Screening Patient Data Age: 59 Gender: M Height: 1.93 m Weight: 92.2 kg Last Vital Signs Temp 36.4 C 03/05/20 09:00 Pulse 59 L 03/05/20 09:00 Resp 18 03/05/20 09:00 BP 159/94 H 03/05/20 09:00 Pulse Ox 100 03/05/20 09:00 Allergies Allergy/AdvReac Type Severity Reaction Status Date / Time No Known Allergies Allergy Unknown Verified 03/05/20 08:59 Home Medications Medication Instructions Recorded Confirmed Type peg 3350-electrolytes 236 240 ml PO Q10M #4000 ml 02/09/20 Rx gram-22.74 gram-6.74 gram-5.86 gram solution polyethylene glycol 3350 17 17 g PO DAILY #238 g 02/24/20 Rx gram/dose oral powder ergocalciferol (vitamin D2) 1,000 unit PO DAILY 03/01/20 03/01/20 History [Vitamin D2] multivitamin [Daily Multi-Vitamin] 1 tablet PO DAILY 03/01/20 03/01/20 History vitamin A-vitamin C-vitamin E 1 tablet PO DAILY 03/01/20 03/01/20 History [Antioxidant Supplement] zinc 50 mg PO DAILY 03/01/20 03/01/20 History Patient hx anesthesia problems: none Family hx anesthesia problems: none PMFSH Past Medical History Medical History (Updated 01/15/20 @ 14:25 by Jose Gould MD) Colon cancer screening GERD (gastroesophageal reflux disease) Wears glasses Surgical History Surgical History (Updated 07/23/19 @ 23:14 by Xi Alcazar DO) H/O inguinal hernia repair bilateral with recurrence with a second surgery on the right inguinal hernia whenever recurred in 2010 (performed at [facility]) H/O: vasectomy Hx of cholecystectomy Family History Family History (Updated 07/23/19 @ 20:27 by Lori Briseno RN) Mother Hypertension Father ALS (amyotrophic lateral sclerosis) Social History Social History (Updated 07/24/19 @ 02:47 by Xi Alcazar DO) Social History: Primary care physician: Dr. Mamadou Pfeiffer Code status: Full code Smoking status: Never smoker Alcohol intake: current Substance use: never Substance use type: does not use Additional living arrangements comments: The patient lives with his of over 30 years. 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 Gender identity (if verbalized by the patient): Male Spiritual care concerns: No Agree to blood products: Yes Anes - Eval Final PreProcedure Day of Procedure 03/05/20 09:12 Patient weight: normal Heart: regular rate and rhythm Lungs: clear to auscultation and normal air movement Airway: Mallampati scale class II Neurological: alert and oriented Last oral intake: >/= 8 hours ASA classification: II Emergent: no Anesthetic plan: proceed Anesthesia type and monitoring: general GIVS Informed Consent: The patient's anesthetic plan and its attendant risks and benefits were discussed with the patient/family/POA. Questions were solicited and answers provided to the satisfaction of the patient/family/POA.
--- NOTE | 2020-03-05 09:36 | WPDANESEPPF ---
Anes - Initial Pre Proc Eval Procedure: Operation Date: 03/05/20 09:30 Proposed Procedures p Esophagogastroduodenoscopy & Screening Colonoscopy - Jose Gould MD Date/Time: 03/05/20 09:36 Surgeon: Jose Gould MD Pre Op Diagnosis: Dysphagia/ Neoplasm Screening Patient Data Age: 59 Gender: M Height: 1.93 m Weight: 92.2 kg Last Vital Signs Temp 36.4 C 03/05/20 09:00 Pulse 59 L 03/05/20 09:00 Resp 18 03/05/20 09:00 BP 159/94 H 03/05/20 09:00 Pulse Ox 100 03/05/20 09:00 Allergies Allergy/AdvReac Type Severity Reaction Status Date / Time No Known Allergies Allergy Unknown Verified 03/05/20 08:59 Home Medications Medication Instructions Recorded Confirmed Type peg 3350-electrolytes 236 240 ml PO Q10M #4000 ml 02/09/20 Rx gram-22.74 gram-6.74 gram-5.86 gram solution polyethylene glycol 3350 17 17 g PO DAILY #238 g 02/24/20 Rx gram/dose oral powder ergocalciferol (vitamin D2) 1,000 unit PO DAILY 03/01/20 03/01/20 History [Vitamin D2] multivitamin [Daily Multi-Vitamin] 1 tablet PO DAILY 03/01/20 03/01/20 History vitamin A-vitamin C-vitamin E 1 tablet PO DAILY 03/01/20 03/01/20 History [Antioxidant Supplement] zinc 50 mg PO DAILY 03/01/20 03/01/20 History Patient hx anesthesia problems: none Family hx anesthesia problems: none PMFSH Past Medical History Medical History (Updated 03/05/20 @ 09:37 by Jose Gould MD) Colon cancer screening GERD (gastroesophageal reflux disease) Sensation of lump in throat Wears glasses Surgical History Surgical History (Updated 07/23/19 @ 23:14 by Xi Alcazar DO) H/O inguinal hernia repair bilateral with recurrence with a second surgery on the right inguinal hernia whenever recurred in 2010 (performed at [facility]) H/O: vasectomy Hx of cholecystectomy Family History Family History (Updated 07/23/19 @ 20:27 by Lori Briseno RN) Mother Hypertension Father ALS (amyotrophic lateral sclerosis) Social History Social History (Updated 07/24/19 @ 02:47 by Xi Alcazar DO) Social History: Primary care physician: Dr. Mamadou Pfeiffer Code status: Full code Smoking status: Never smoker Alcohol intake: current Substance use: never Substance use type: does not use Additional living arrangements comments: The patient lives with his of over 30 years. 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 Gender identity (if verbalized by the patient): Male Spiritual care concerns: No Agree to blood products: Yes Anes - Eval Final PreProcedure Day of Procedure 03/05/20 09:36 Patient weight: normal Heart: regular rate and rhythm Lungs: clear to auscultation and normal air movement Airway: Mallampati scale class II Neurological: alert and oriented Last oral intake: >/= 8 hours ASA classification: II Emergent: no Anesthetic plan: proceed Anesthesia type and monitoring: general GIVS Informed Consent: The patient's anesthetic plan and its attendant risks and benefits were discussed with the patient/family/POA. Questions were solicited and answers provided to the satisfaction of the patient/family/POA.
--- NOTE | 2020-03-05 09:36 | PM.HPGS ---
History of Present Illness History of Present Illness Consent: Risks, benefits, and alternatives have been discussed and questions answered. Patient agrees to proceed with procedure. Chief complaint: Dysphagia/ Neoplasm Screening Narrative: Greg Carlin is a 59 year old male with throat lump and also due to have a colonoscopy Review of Systems Constitutional: Constitutional: Denies headache(s) and Denies weakness Eyes: Eyes: Denies blurry vision ENT: Reports Normal hearing present, Denies headache(s) and Denies neck pain Cardiovascular: Cardiovascular: Denies chest pain and Denies dyspnea Respiratory: Respiratory: Denies dyspnea Gastrointestinal: Gastrointestinal: Reports no additional gastrointestinal complaints Genitourinary: Genitourinary: Denies dysuria Musculoskeletal: Musculoskeletal: Denies neck pain Integumentary/Breasts: Skin/Breast: Denies dry skin Neurologic: Reports Normal hearing present, Denies headache(s) and Denies weakness Psychiatric: Psychiatric: Denies anxiety Endocrine: Endocrine: Denies change in body appearance Hematologic/Lymphatic: Hematologic/Lymphatic: Denies easy bleeding Allergic/Immunologic: Allergic/Immunologic: Denies urticaria PMFSH Past Medical History Medical History (Updated 03/05/20 @ 09:37 by Jose Gould MD) Colon cancer screening GERD (gastroesophageal reflux disease) Sensation of lump in throat Wears glasses Surgical History Surgical History (Updated 07/23/19 @ 23:14 by Xi Alcazar DO) H/O inguinal hernia repair bilateral with recurrence with a second surgery on the right inguinal hernia whenever recurred in 2010 (performed at [facility]) H/O: vasectomy Hx of cholecystectomy Family History Family History (Updated 07/23/19 @ 20:27 by Lori Briseno RN) Mother Hypertension Father ALS (amyotrophic lateral sclerosis) Social History Social History (Updated 07/24/19 @ 02:47 by Xi Alcazar DO) Social History: Primary care physician: Dr. Mamadou Pfeiffer Code status: Full code Smoking status: Never smoker Alcohol intake: current Substance use: never Substance use type: does not use Additional living arrangements comments: The patient lives with his of over 30 years. 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 Gender identity (if verbalized by the patient): Male Spiritual care concerns: No Agree to blood products: Yes Meds Home Medications and Allergies Home Medications Medication Instructions Recorded Confirmed Type peg 3350-electrolytes 236 240 ml PO Q10M #4000 ml 02/09/20 Rx gram-22.74 gram-6.74 gram-5.86 gram solution polyethylene glycol 3350 17 17 g PO DAILY #238 g 02/24/20 Rx gram/dose oral powder ergocalciferol (vitamin D2) 1,000 unit PO DAILY 03/01/20 03/01/20 History [Vitamin D2] multivitamin [Daily Multi-Vitamin] 1 tablet PO DAILY 03/01/20 03/01/20 History vitamin A-vitamin C-vitamin E 1 tablet PO DAILY 03/01/20 03/01/20 History [Antioxidant Supplement] zinc 50 mg PO DAILY 03/01/20 03/01/20 History Allergies Allergy/AdvReac Type Severity Reaction Status Date / Time No Known Allergies Allergy Unknown Verified 03/05/20 08:59 Vital Signs Vital Signs - 24 hr 03/05/20 09:00 Temperature 97.6 F Pulse Rate 59 L Respiratory Rate 18 Blood Pressure 159/94 H Pulse Oximetry 100 Exam Const: General: comfortable and no acute distress HENMT: General nose exam: Normal nares present Eyes: General: appearance normal, both eyes and all related structures Neck: Neck: no JVD Resp: Auscultation: clear to auscultation bilaterally Cardio: Rate: regular rate Rhythm: regular rhythm GI: Inspection: non-distended GI Palp: Yes Soft to palpation Skin: General skin exam: normal color Neuro: General: gait normal Speech: norm
[2020-03-05 10:14] VITALS: BP 116/70; PULSE 55; RESP 18; O2SAT 100
[2020-03-05 10:24] VITALS: BP 117/73; PULSE 51; RESP 18; O2SAT 100
[2020-03-05 10:34] VITALS: BP 139/82; PULSE 49; RESP 18; O2SAT 100
== END 2020-03-05 11:02 | disposition home or self-care (01) ==
PROVIDERS: PCP Family Medicine Adolescent Medicine; Visit Provider Internal Medicine Gastroenterology
PROC: 0DJ08ZZ Inspection of Upper Intestinal Tract, Via Natural or Artificial Opening Endoscopic (ICD-10-PCS; CPT 43235; principal; 2020-03-05 09:30)
DX: Z12.11 Encounter for screening for malignant neoplasm of colon (principal); F45.8 Other somatoform disorders; K21.9 Gastro-esophageal reflux disease without esophagitis; K57.30 Diverticulosis of large intestine without perforation or abscess without bleeding; K64.8 Other hemorrhoids
CPT/HCPCS: 43235; 45378; J2704; J7120

== ENCOUNTER 2020-10-12 16:34 | Emergency (ER) | payer OTHER, SELFPAY ==
[2020-10-12 16:37] VITALS: BP 153/90; PULSE 61; RESP 12; TEMP 36.6; O2SAT 100
--- NOTE | 2020-10-12 16:37 | ED.EYEPROB ---
HPI - Eye Problem General Chief complaint: Eye Problems Stated complaint: FB EYE Time Seen by Provider: 10/12/20 16:40 Source: patient and RN notes reviewed Mode of arrival: ambulatory Limitations: no limitations History of Present Illness HPI Narrative: 60-year-old male presents concern for possible foreign body in his left eye. Reports just prior to arrival a piece of plastic electrical wire flew into his eye. He feels a foreign body in the bottom of his eye. He denies pain, drainage, redness, vision changes. Reports he did not rinse his eye. MD chief complaint: foreign body Related Data Home Medications Medication Instructions Recorded Confirmed ergocalciferol (vitamin D2) 1,000 unit PO DAILY 03/01/20 03/01/20 [Vitamin D2] multivitamin [Daily Multi-Vitamin] 1 tablet PO DAILY 03/01/20 03/01/20 vitamin A-vitamin C-vitamin E 1 tablet PO DAILY 03/01/20 03/01/20 [Antioxidant Supplement] zinc 50 mg PO DAILY 03/01/20 03/01/20 metoprolol succinate PO 10/12/20 Allergies Allergy/AdvReac Type Severity Reaction Status Date / Time No Known Allergies Allergy Unknown Verified 03/05/20 08:59 Review of Systems Review of Systems: Narrative: CONSTITUTIONAL: Denies malaise, chills, sweats, or fever. EYES: Denies visual changes, redness, or discharge. Reports foreign body in the left eye SKIN: Denies abrasions, lacerations NEUROLOGIC: Denies headache. All systems reviewed & are unremarkable except as noted in HPI and below PMFSH Past Medical History Medical History (Updated 10/12/20 @ 16:52 by Arin Victoria NP) Colon cancer screening GERD (gastroesophageal reflux disease) Sensation of lump in throat Wears glasses Surgical History Surgical History (Updated 07/23/19 @ 23:14 by Xi Alcazar DO) H/O inguinal hernia repair bilateral with recurrence with a second surgery on the right inguinal hernia whenever recurred in 2010 (performed at [facility]) H/O: vasectomy Hx of cholecystectomy Family History Family History (Updated 07/23/19 @ 20:27 by Lori Briseno RN) Mother Hypertension Father ALS (amyotrophic lateral sclerosis) Social History Social History (Updated 07/24/19 @ 02:47 by Xi Alcazar DO) Social History: Primary care physician: Dr. Mamadou Pfeiffer Code status: Full code Smoking status: Never smoker Alcohol intake: current Substance use: never Substance use type: does not use Additional living arrangements comments: The patient lives with his of over 30 years. 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 Gender identity (if verbalized by the patient): Male Spiritual care concerns: No Agree to blood products: Yes Comments At time of signature, agree with nursing past medical, surgical, social and family history. There is no relevant family history pertinent to the presenting complaint Exam Narrative: Exam Narrative: GENERAL: Well-appearing, well-nourished, and in no acute distress. HEAD: Normocephalic, atraumatic. EYES: PERRLA, conjunctivae clear, and EOMI. foreign body noted in left eye, small corneal abrasion noted in left eye, see note ENT: Nares clear. Mucous membranes moist. NECK: Supple. CHEST: No respiratory distress. Speaks in full sentences. HEART: Regular rate and rhythm. SKIN: Warm, dry, no rash. NEURO: Alert and oriented x3. PSYCH: Normal mood and affect Course Course Emergency Course: Patient is aware of diagnosis, understands and agrees to treatment plan. Anticipatory guidance given. Patient agrees to follow-up as directed and is aware of reasons to seek care at the emergency department. Portions of this record may have been created with voice recognition software Vital Signs Vital signs: Vital Signs Temperature 97.9 F 10/12/20 16:37 Pulse Rate 61 10/12/20 16:37 Respiratory Rate 12 10/12/20 16:3
== END 2020-10-12 16:58 | disposition home or self-care (01) ==
PROVIDERS: Emergency Provider Nurse Practitioner; PCP Family Medicine Adolescent Medicine
DX: T15.12XA Foreign body in conjunctival sac, left eye, initial encounter (principal); X58.XXXA Exposure to other specified factors, initial encounter; K21.9 Gastro-esophageal reflux disease without esophagitis
CPT/HCPCS: 65205; 99213; A9270; G0463

== ENCOUNTER 2022-01-11 02:19 | Emergency (ER) | payer OTHER, SELFPAY ==
--- NOTE | ~2022-01-11 | CT_ITS ---
EXAMINATION: CT abdomen pelvis wo con DATE: 01/11/2022 03:20 INDICATION: Left lower quadrant abdominal pain. TECHNIQUE: Computed tomography (CT) of the abdomen and pelvis was performed without intravenous contr ast. Automated exposure control and iterative reconstruction technique were employed. The dose-length product was 704.44 mGy-cm. COMPARISON: CT abdomen and pelvis 05/06/2006 FINDINGS: The visualized portions of the lung bases demonstrate mild atelectasis. A calcified right l jo ann nodule is consistent with old granulomatous disease. There is an 8 mm nodule in right lower lobe. There is a 7 mm nodule in right middle lobe. These findings are chronic, likely benign. No pleural e ffusion. The heart size is normal. No pericardial effusion. The liver is normal. There are changes of cholecystectomy. The spleen, pancreas, adrenal glands, and right kidney are normal. There is mild le ft hydronephrosis. There is a 4 mm stone in proximal left ureter. There is a left inguinal hernia con taining fat. There is diverticulosis of the colon without evidence of diverticulitis. There are no di lated loops of bowel. The appendix is normal. There are no pathologically enlarged lymph nodes. There is no free intraperitoneal fluid. There is prominent fat in the umbilicus that may be a hernia. Ther e is severe lower lumbar spondylosis. IMPRESSION: 1. 4 mm stone in proximal left ureter with mild left hydronephrosis. Reviewed, dictated and finalized at location A.
[2022-01-11 02:21] VITALS: BP 171/143; PULSE 98; RESP 20; TEMP 36.8; O2SAT 99
[2022-01-11] MEDS: SODIUM CHLORIDE 0.9% IV 1,000 ML 999 ML IV CONT (02:53)
[2022-01-11] MEDS: ONDANSETRON INJ 4 MG/2 ML VIAL IV PUSH (02:54)
[2022-01-11] MEDS: HYDROmorphone HCL INJ (*CRX) 1 MG/ML SYR IV PUSH (02:54)
[2022-01-11 02:59] LABS: Basophils Absolute Auto 0.1 K/mm3 (0.0-0.1); Basophils Percent Auto 0.7 % (0.2-1.2); Eosinophils Absolute Auto 0.4 K/mm3 (0-0.3); Eosinophils Percent Auto 4.2 % (0-4.4); Hematocrit 41.8 % (42.0-52.0); Hemoglobin 15.2 g/dL (14.0-18.0); Immature Granulocyte Absolute 0.06 K/mm3 (0.00-0.031); Immature Granulocyte Percent A 0.7 % (0-0.5); Lymphocytes Percent Auto 27.4 % (18.3-44.2); Mean Corpuscular HGB Conc 36.4 g/dl (32-36); Mean Corpuscular Hemoglobin 33.6 pg (26-34); Mean Corpuscular Volume 92.3 fl (80-100); Mean Platelet Volume 9.5 fl (7.4-10.4); Monocytes Absolute Auto 0.8 K/mm3 (0.1-0.6); Monocytes Percent Auto 9.5 % (2.6-8.5); Neutrophils Percent Auto 57.5 % (45.5-73.1); Platelet Count Result 183 k/mm3 (150-375); Red Blood Count 4.53 M/mm3 (4.6-6.20); Red Cell Distribution Width 12.9 % (11.5-14.5); White Blood Count 8.8 K/mm3 (4.5-10.0)
--- NOTE | 2022-01-11 03:07 | PC.NURSE ---
Gave report to ZBIGNIEW Carrillo.
[2022-01-11 03:08] LABS: Lactic Acid Reflex 1.5 mmol/L (0.7-2.0); Lipase 78 U/L (23-300)
[2022-01-11 03:09] LABS: Alanine Aminotransferase 21 U/L (6-50); Alkaline Phosphatase 69 U/L (38-126); Anion Gap 7 mmol/L (8-16); Aspartate Amino Transferase 28 U/L (17-59); Bilirubin,Total 0.6 mg/dL (0.2-1.3); Blood Urea Nitrogen 19 mg/dL (9-20); Calcium 9.1 mg/dL (8.4-10.2); Carbon Dioxide 30 mmol/L (22-30); Chloride 101 mmol/L (98-107); Estimated CRCL calculation 73 ml/min; Estimated Glomerular Filt Rate > 60; Glucose 118 mg/dL (65-110); Potassium 3.8 mmol/L (3.4-5.0); Sodium 138 mmol/L (137-145)
[2022-01-11 04:01] LABS: Appearance Urine Clear (Clear); Bilirubin Urine Negative (Negative); Blood Urine 2+ (Negative); Color Urine Yellow (Yellow); Glucose Urine UA Negative (Negative); Ketones Urine Negative (Negative); Leukocyte Esterase Ur Negative LEU/UL (Negative); Nitrate Urine Negative (Negative); Protein Urine Negative (Negative); Specific Grav Ur 1.025 (1.001-1.035); Urobilinogen Urine 0.2 mg/dL (<2.0); pH Urine 6.5 (5.0-9.0)
[2022-01-11 04:04] LABS: Mucus Urine Rare /lpf; RBC Urine >75 /hpf (0-2); WBC Urine 0-3 /hpf
[2022-01-11 04:12] LABS: Add Urine Microscopic? YES
--- NOTE | 2022-01-11 04:27 | ED.GENADULT ---
HPI - General Adult General Chief complaint: Abdominal Pain Stated complaint: ABD PAIN Time Seen by Provider: 01/11/22 02:29 History of Present Illness HPI narrative: Patient is 61-year-old gentleman who presents the emergency department with chief complaint of left-sided abdominal pain. Patient states the pain began suddenly states that sharp reports is unable to get comfortable in any position. Patient reports he had some nausea with this. Patient reports symptoms are not improved by anything patient denies fever reports he is recently been treated for an upper respiratory infection and is currently on Augmentin. The patient's reports this is similar to whenever she has had kidney stones. Patient reports he had no prior history of kidney stones in the past Related Data Home Medications Medication Instructions Recorded Confirmed ergocalciferol (vitamin D2) 1,000 1,000 unit PO DAILY 03/01/20 09/14/21 unit capsule multivitamin (Daily Multi-Vitamin 1 tablet PO DAILY 03/01/20 09/14/21 tablet) vitamin A-vitamin C-vitamin E 1 tablet PO DAILY 03/01/20 09/14/21 zinc 50 mg capsule 50 mg PO DAILY 03/01/20 09/14/21 Allergies Allergy/AdvReac Type Severity Reaction Status Date / Time No Known Allergies Allergy Unknown Verified 01/11/22 02:24 Review of Systems Review of Systems: A 10 system review of systems was completed on the patient and is negative except for what is stated in the HPI. Nursing and ancillary documentation was reviewed. [facility] Past Medical History Medical History Colon cancer screening Diverticulosis GERD (gastroesophageal reflux disease) HTN (hypertension) Sensation of lump in throat Wears glasses Surgical History Surgical History H/O inguinal hernia repair bilateral with recurrence with a second surgery on the right inguinal hernia whenever recurred in 2010 (performed at [facility]) H/O: vasectomy Hx of cholecystectomy Family History Family History Mother Hypertension Father ALS (amyotrophic lateral sclerosis) Social History Social History Social History: Primary care physician: Dr. Mamadou Pfeiffer Code status: Full code Smoking status: Never smoker Second hand tobacco smoke exposure: No Alcohol intake: current Alcohol use details: Rarely drinks alcohol Substance use: never Substance use type: does not use Additional living arrangements comments: The patient lives with his of over 30 years. 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 Gender identity (if verbalized by the patient): Male Sexual Orientation (if Verbalized by the Patient): Straight or Heterosexual Spiritual care concerns: No Agree to blood products: Yes Exam Narrative: GENERAL: Well-appearing, well-nourished, and in no acute distress. HEAD: Normocephalic, atraumatic. EYES: PERRLA and EOMI. ENT: Nares clear, no rhinorrhea or epistaxis. Mucous membranes moist. NECK: Supple. CHEST: Clear to auscultation. No respiratory distress. HEART: Regular rate and rhythm. No murmur heard. Normal peripheral pulses. ABDOMEN: Soft, nontender, nondistended, normal active bowel sounds. EXTREMITIES: Normal range of motion. No edema. SKIN: Warm, dry, no rash. NEURO: No focal deficits. Alert and oriented x3. PSYCH: Normal mood and affect. Course Course Emergency Course: Patient's pain was controlled in the emergency department he is doing much better at this time reports his pain has been completely relieved. The patient underwent CT scan which showed a left-sided moderate hydronephrosis with hydroureter as well as a 3 x 3 mm stone located i
[2022-01-11] MEDS: TAMSULOSIN HCL 0.4 MG CAPSULE PO (04:58)
[2022-01-11] MEDS: HYDROcodone/acetaminophen (*CRX) 5-325 MG TABLET 1 TAB PO (04:58)
[2022-01-11 05:09] VITALS: BP 138/90; PULSE 87; RESP 18; O2SAT 99
== END 2022-01-11 05:09 | disposition home or self-care (01) ==
PROVIDERS: Emergency Provider Emergency Medicine; PCP Family Medicine Adolescent Medicine
DX: N13.2 Hydronephrosis with renal and ureteral calculous obstruction (principal); I10 Essential (primary) hypertension; K21.9 Gastro-esophageal reflux disease without esophagitis
CPT/HCPCS: 36415; 74176; 80053; 81001; 83605; 83690; 85025; 96361; 96374; 96375; 99284; A9270; J1170; J2405; J7030

== ENCOUNTER 2022-01-15 23:23 | Emergency (ER) | payer OTHER, SELFPAY ==
[2022-01-15 23:28] VITALS: BP 156/88; PULSE 74; RESP 18; TEMP 36.7; O2SAT 99
--- NOTE | 2022-01-16 00:33 | ED.URI ---
HPI - URI/Sore Throat General Chief Complaint: Headache Stated Complaint: COVID+, URI Time Seen by Provider: 01/15/22 23:33 History of Present Illness HPI Narrative: 61-year-old male presents to the emergency room because he just found out he is positive for COVID 2 hours ago. Patient has been complaining of sinus congestion and postnasal drip for over a week. He was seen at an urgent care in [place] last weekend and was given a prescription for Augmentin. Patient states the antibiotics are not helping his sinus congestion. Patient states he has been taking Mucinex without relief of symptoms. Denies fever. Related Data Home Medications Medication Instructions Recorded Confirmed ergocalciferol (vitamin D2) 1,000 1,000 unit PO DAILY 03/01/20 09/14/21 unit capsule multivitamin (Daily Multi-Vitamin 1 tablet PO DAILY 03/01/20 09/14/21 tablet) vitamin A-vitamin C-vitamin E 1 tablet PO DAILY 03/01/20 09/14/21 zinc 50 mg capsule 50 mg PO DAILY 03/01/20 09/14/21 Allergies Allergy/AdvReac Type Severity Reaction Status Date / Time No Known Allergies Allergy Unknown Verified 01/16/22 00:22 Review of Systems Review of Systems: CONSTITUTIONAL: Denies fever, chills, or sweats. EYES: Denies visual changes, redness, or discharge. ENT: Reports rhinorrhea, congestion CARDIOVASCULAR: Denies chest pain, palpitations, or edema. RESPIRATORY: Denies cough or dyspnea. GASTROINTESTINAL: Denies abdominal pain, nausea, vomiting, or diarrhea. GENITOURINARY: Denies dysuria or hematuria. SKIN: Denies rash or itching. MUSCULOSKELETAL: Denies back pain, joint pain, or myalgia. NEUROLOGIC: Denies headache, numbness, dizziness, or weakness. PSYCHIATRIC: Denies anxiety or depression. [facility] Past Medical History Medical History Colon cancer screening Diverticulosis GERD (gastroesophageal reflux disease) HTN (hypertension) Sensation of lump in throat Wears glasses Surgical History Surgical History H/O inguinal hernia repair bilateral with recurrence with a second surgery on the right inguinal hernia whenever recurred in 2010 (performed at [facility]) H/O: vasectomy Hx of cholecystectomy Family History Family History Mother Hypertension Father ALS (amyotrophic lateral sclerosis) Social History Social History Social History: Primary care physician: Dr. Mamadou Pfeiffer Code status: Full code Smoking status: Never smoker Second hand tobacco smoke exposure: No Alcohol intake: current Alcohol use details: Rarely drinks alcohol Substance use: never Substance use type: does not use Additional living arrangements comments: The patient lives with his of over 30 years. 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 Gender identity (if verbalized by the patient): Male Sexual Orientation (if Verbalized by the Patient): Straight or Heterosexual Spiritual care concerns: No Agree to blood products: Yes Exam Narrative: GENERAL: Well-appearing, well-nourished, no physical limitations, and in no acute distress. HEAD: Normocephalic, atraumatic. EYES: Conjunctivae normal, PERRLA and EOMI. ENT: External nose normal, Nares clear, clear rhinorrhea. Mucous membranes moist. Oropharynx without tonsillar hypertrophy exudate or other lesions. External ears normal, bilateral TMs normal bilaterally. No facial tenderness NECK: Supple. No adenopathy or masses. CHEST: Clear to auscultation. No respiratory distress. No wheezes rales or rhonchi. No tenderness. HEART: Regular rate and rhythm. No murmur heard. Normal peripheral pulses. EXTREMITIES: Normal range of motion. No edema. No clubbing or cyanos
== END 2022-01-16 00:41 | disposition home or self-care (01) ==
PROVIDERS: Emergency Provider Nurse Practitioner Family; PCP Family Medicine Adolescent Medicine
DX: U07.1 COVID-19 (principal); J06.9 Acute upper respiratory infection, unspecified; K21.9 Gastro-esophageal reflux disease without esophagitis; I10 Essential (primary) hypertension
CPT/HCPCS: 99283

== ENCOUNTER 2022-01-26 17:29 | Outpatient (CLI) | payer OTHER, SELFPAY ==
--- NOTE | ~2022-01-26 | XR_ITS ---
EXAMINATION: XR chest 2V DATE: 01/26/2022 17:53 INDICATION: Cough. TECHNIQUE: Frontal and lateral views of the chest were obtained on 3 radiographs. COMPARISON: Chest 2 views 07/23/2019, CT abdomen and pelvis 03/13/2022, chest CT 01/26/2020 FINDINGS: There is mild scarring at the lung apices. A calcified right lung nodule is consistent with old granulomatous disease. There is a chronic 6 mm nodule in right lower lobe, likely benign. There are mild airspace opacities in right middle lobe. No pleural effusion or pneumothorax. The heart size is normal. IMPRESSION: 1. Mild airspace opacities in right middle lobe, consistent with atelectasis versus pneumonia. Reviewed, dictated and finalized at location A. IMPRESSION: 1. Mild airspace opacities in right middle lobe, consistent with atelectasis ve rsus pneumonia.
== END 2022-01-26 17:30 | disposition home or self-care (01) ==
LOC: ANHIMG 17:34
PROVIDERS: PCP Family Medicine Adolescent Medicine; Visit Provider Family Medicine Adolescent Medicine
DX: R05.9 Cough, unspecified (principal); R91.8 Other nonspecific abnormal finding of lung field
CPT/HCPCS: 71046

== ENCOUNTER 2022-03-08 23:00 | Emergency (ER) | payer OTHER, SELFPAY ==
--- NOTE | ~2022-03-08 | CT_ITS ---
EXAMINATION: CT abdomen pelvis wo con DATE: 03/09/2022 00:22 INDICATION: Left lower quadrant pain. TECHNIQUE: Computed tomography (CT) of the abdomen and pelvis was performed without intravenous contr ast. The dose-length product was 668.65 mGy-cm. COMPARISON: Comparison to multiple prior studies sequentially, with oldest reviewed study dated 04/14. . FINDINGS: There are stable right middle and lower lobe nodules, largest in the right lower lobe measu ring 8 mm. These nodules are unchanged and likely benign. There is a densely calcified granuloma in t he right lower lobe posteriorly unchanged. Heart size normal. No significant pleural or pericardial e ffusion. Mild atherosclerosis. No lymphadenopathy. No free air or free fluid. Nonobstructive bowel pattern. Co lonic diverticulosis without evidence for diverticulitis. There is a 6 x 3 mm distal left ureteral st one with mild left hydroureteronephrosis. There are calcified granulomas in the spleen. Small fat-containing umbilical hernia. There is moderat e lumbar spondylosis. Normal appendix. IMPRESSION: 1. Distal left ureteral stone just proximal to the UVJ measuring 6 x 3 mm. Mild left hydroureteroneph rosis. Reviewed, dictated and finalized at location B. IMPRESSION: 1. Distal left ureteral stone just proximal to the UVJ measuring 6 x 3 mm. Mild left hydroureteronephrosis.
[2022-03-08 23:11] VITALS: BP 148/72; PULSE 61; RESP 20; TEMP 36.6; O2SAT 99
--- NOTE | 2022-03-08 23:54 | ED.MALEGU ---
HPI - Male Genitourinary General Chief complaint: Urogenital-Male Stated complaint: urinary symptoms Time Seen by Provider: 03/08/22 23:44 Source: patient Mode of arrival: ambulatory Limitations: no limitations History of Present Illness HPI Narrative: This is a 61-year-old male that presents to the emergency department for lower abdominal pain. Also reports urinary frequency and hesitancy. Denies fever, vomiting, or flank pain. Related Data Home Medications Medication Instructions Recorded Confirmed ergocalciferol (vitamin D2) 1,000 1,000 unit PO DAILY 03/01/20 09/14/21 unit capsule multivitamin (Daily Multi-Vitamin 1 tablet PO DAILY 03/01/20 09/14/21 tablet) vitamin A-vitamin C-vitamin E 1 tablet PO DAILY 03/01/20 09/14/21 zinc 50 mg capsule 50 mg PO DAILY 03/01/20 09/14/21 Allergies Allergy/AdvReac Type Severity Reaction Status Date / Time No Known Allergies Allergy Unknown Verified 03/08/22 23:25 Review of Systems Review of Systems: CONSTITUTIONAL: Denies fever GASTROINTESTINAL: Reports abdominal pain. Denies nausea, vomiting GENITOURINARY: Denies dysuria or hematuria. All systems reviewed & are unremarkable except as noted in HPI and below PMFSH Past Medical History Medical History Colon cancer screening Diverticulosis GERD (gastroesophageal reflux disease) HTN (hypertension) Sensation of lump in throat Wears glasses Surgical History Surgical History H/O inguinal hernia repair bilateral with recurrence with a second surgery on the right inguinal hernia whenever recurred in 2010 (performed at [facility]) H/O: vasectomy Hx of cholecystectomy Family History Family History Mother Hypertension Father ALS (amyotrophic lateral sclerosis) Social History Social History Social History: Primary care physician: Dr. Mamadou Pfeiffer Code status: Full code Smoking status: Never smoker Second hand tobacco smoke exposure: No Alcohol intake: current Alcohol use details: Rarely drinks alcohol Substance use: never Substance use type: does not use Additional living arrangements comments: The patient lives with his of over 30 years. 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 Gender identity (if verbalized by the patient): Male Sexual Orientation (if Verbalized by the Patient): Straight or Heterosexual Spiritual care concerns: No Agree to blood products: Yes Exam Narrative: GENERAL: Well-appearing, well-nourished, and in no acute distress. HEAD: Normocephalic, atraumatic. EYES: EOMI. CHEST: Clear to auscultation. No respiratory distress. No wheezes rales or rhonchi HEART: Regular rate and rhythm. No murmur heard. Normal peripheral pulses. ABDOMEN: Soft, nontender, nondistended, normal active bowel sounds. No CVA tenderness EXTREMITIES: Normal range of motion. No edema. SKIN: Warm, dry, no rash. NEURO: No focal deficits. Alert and oriented x3. PSYCH: Normal mood and affect Course Vital Signs Vital signs: Vital Signs Temperature 97.9 F 03/08/22 23:11 Pulse Rate 61 03/08/22 23:11 Respiratory Rate 20 03/08/22 23:11 Blood Pressure 148/72 H 03/08/22 23:11 Pulse Oximetry 99 03/08/22 23:11 Oxygen Delivery Room Air 03/08/22 23:11 Temperature 97.9 F 03/08/22 23:11 Pulse Rate 61 03/08/22 23:11 Respiratory Rate 20 03/08/22 23:11 Blood Pressure 148/72 H 03/08/22 23:11 Pulse Oximetry 99 03/08/22 23:11 Oxygen Delivery Room Air 03/08/22 23:11 MDM - Male Genitourinary MDM Narrative Medical decision making narrative: Patient presents to the emergency department for irritative voiding symptoms and lo
[2022-03-09 00:01] LABS: Add Urine Microscopic? YES; Appearance Urine Clear (Clear); Bacteria Urine Trace /hpf; Bilirubin Urine Negative (Negative); Blood Urine 3+ (Negative); Color Urine Straw (Yellow); Glucose Urine UA Negative (Negative); Ketones Urine Negative (Negative); Leukocyte Esterase Ur Negative LEU/UL (Negative); Mucus Urine Rare /lpf; Nitrate Urine Negative (Negative); Protein Urine Negative (Negative); RBC Urine 21-50 /hpf (0-2); Specific Grav Ur 1.006 (1.001-1.035); Urobilinogen Urine Negative mg/dL (<2.0); WBC Urine 0-3 /hpf
[2022-03-09 00:42] LABS: Basophils Absolute Auto 0.1 K/mm3 (0.0-0.1); Basophils Percent Auto 0.7 % (0.2-1.2); Eosinophils Absolute Auto 0.2 K/mm3 (0-0.3); Eosinophils Percent Auto 2.2 % (0-4.4); Hematocrit 45.5 % (42.0-52.0); Hemoglobin 15.9 g/dL (14.0-18.0); Immature Granulocyte Absolute 0.12 K/mm3 (0.00-0.031); Immature Granulocyte Percent A 1.1 % (0-0.5); Lymphocytes Absolute Auto 2.47 K/mm3 (0.9-3.2); Lymphocytes Percent Auto 23.4 % (18.3-44.2); Mean Corpuscular HGB Conc 34.9 g/dl (32-36); Mean Corpuscular Hemoglobin 32.3 pg (26-34); Mean Corpuscular Volume 92.5 fl (80-100); Mean Platelet Volume 8.8 fl (7.4-10.4); Monocytes Absolute Auto 0.8 K/mm3 (0.1-0.6); Monocytes Percent Auto 7.5 % (2.6-8.5); Neutrophils Absolute Auto 6.9 K/mm3 (1.3-6.7); Neutrophils Percent Auto 65.1 % (45.5-73.1); Platelet Count Result 193 k/mm3 (150-375); Red Blood Count 4.92 M/mm3 (4.6-6.20); Red Cell Distribution Width 12.6 % (11.5-14.5); White Blood Count 10.6 K/mm3 (4.5-10.0)
[2022-03-09 00:49] LABS: Anion Gap 10 mmol/L (8-16); Blood Urea Nitrogen 20 mg/dL (9-20); Calcium 8.8 mg/dL (8.4-10.2); Carbon Dioxide 31 mmol/L (22-30); Chloride 97 mmol/L (98-107); Estimated CRCL calculation 80 ml/min; Estimated Glomerular Filt Rate > 60; Glucose 93 mg/dL (65-110); Potassium 3.9 mmol/L (3.4-5.0); Sodium 138 mmol/L (137-145)
[2022-03-09 01:27] VITALS: BP 134/81; PULSE 61; RESP 16; TEMP 36.6; O2SAT 100
== END 2022-03-09 02:38 | disposition home or self-care (01) ==
PROVIDERS: Physician Assistant; Emergency Provider Emergency Medicine; PCP Family Medicine Adolescent Medicine
DX: N20.1 Calculus of ureter (principal); I10 Essential (primary) hypertension; K21.9 Gastro-esophageal reflux disease without esophagitis
CPT/HCPCS: 36415; 74176; 80048; 81001; 85025; 99284

== ENCOUNTER 2022-10-15 13:56 | Emergency (ER) | payer OTHER, SELFPAY ==
--- NOTE | ~2022-10-15 | XR_ITS ---
Left Knee Technique: AP, lateral, and oblique views were obtained. Clinical History: Pain Findings: No fracture or dislocation is seen. Osseous alignment is anatomic. Joint spaces are preserv ed without degenerative or erosive change. There is prepatellar soft tissue edema and thickening. No joint effusion is seen. Impression: Prepatellar soft tissue edema/thickening. Correlate for bursitis or posttraumatic change. No osseous or articular abnormality seen. Reviewed, dictated and finalized at location . Impression: Prepatellar soft tissue edema/thickening. Correlate for bursitis or posttraumat ic change. No osseous or articular abnormality seen.
[2022-10-15 14:14] VITALS: BP 109/71; PULSE 72; RESP 18; TEMP 36.6; O2SAT 97
--- NOTE | 2022-10-15 14:24 | ED.LOWEXIN ---
HPI - Extremity Injury (Lower) General Chief Complaint: Extremity Injury, Lower <Katie James PA-C - Last Filed: 10/15/22 18:42> Stated Complaint: left knee swelling <Katie James PA-C - Last Filed: 10/15/22 18:42> Time Seen by Provider: 10/15/22 14:14 <Katie James PA-C - Last Filed: 10/15/22 18:42> History of Present Illness HPI Narrative: 62-year-old male reports for evaluation of left knee pain x1 day. Patient states he was weed eating yesterday, stepped in a hole and twisted his knee incorrectly. States at that time, his knee felt uncomfortable but not as painful as it does now. In addition, he does report that his left knee has been bothering him for the past 3 weeks when he kneels. Reports his knee has slowly becoming more swollen and painful. He is able to ambulate but states it has to be very slow and he needs to brace himself. Denies fever, body aches, chills, paresthesias. No history of knee replacement. <TYRA Cuevas Last Filed: 10/15/22 18:42> Related Data Home Medications: Home Medications Medication Instructions Recorded Confirmed ergocalciferol (vitamin D2) 1,000 1,000 unit PO DAILY 03/01/20 10/27/22 unit capsule multivitamin (Daily Multi-Vitamin 1 tablet PO DAILY 03/01/20 10/27/22 tablet) vitamin A-vitamin C-vitamin E 1 tablet PO DAILY 03/01/20 10/27/22 zinc 50 mg capsule 50 mg PO DAILY 03/01/20 10/27/22 <Katie James PA-C - Last Filed: 10/15/22 18:42> Allergies/Adverse Reactions: Allergies Allergy/AdvReac Type Severity Reaction Status Date / Time No Known Allergies Allergy Unknown Verified 10/26/22 08:10 <TYRA Cuevas Last Filed: 10/15/22 18:42> Review of Systems Review of Systems: CONSTITUTIONAL: Denies fever, chills EYES: Denies visual changes, redness, or discharge. ENT: Denies rhinorrhea, congestion, sore throat, or otalgia. CARDIOVASCULAR: Denies chest pain, palpitations, or edema. RESPIRATORY: Denies cough or dyspnea. GASTROINTESTINAL: Denies abdominal pain, nausea, vomiting, or diarrhea. GENITOURINARY: Denies dysuria or hematuria. SKIN: Denies rash or itching. MUSCULOSKELETAL: Denies back pain, joint pain, or myalgia. NEUROLOGIC: Denies headache, numbness, dizziness, or weakness. PSYCHIATRIC: Denies anxiety or depression. <Katie James PA-C - Last Filed: 10/15/22 18:42> [facility] Past Medical History Medical History: Medical History Colon cancer screening Diverticulosis GERD (gastroesophageal reflux disease) HTN (hypertension) Sensation of lump in throat Wears glasses <TYRA Cuevas Last Filed: 10/15/22 18:42> Surgical History Surgical History: Surgical History H/O inguinal hernia repair bilateral with recurrence with a second surgery on the right inguinal hernia whenever recurred in 2010 (performed at [facility]) H/O: vasectomy Hx of cholecystectomy <TYRA Cuevas Last Filed: 10/15/22 18:42> Family History Family History: Family History Mother Hypertension Father ALS (amyotrophic lateral sclerosis) <TYRA Cuevas Last Filed: 10/15/22 18:42> Social History Social History: Social History Social History: Primary care physician: Dr. Mamadou Pfeiffer Code status: Full code Smoking status: Never smoker Second hand tobacco smoke exposure: No Alcohol intake: current Alcohol use details: Rarely drinks alcohol Substance use: never Substance use type: does not use Living arrangements: with family Additional living arrangements comments: The patient lives with his of over 30 years. Occupation/Education: occupation Additional occupation/education comments: He and his r
[2022-10-15] MEDS: HYDROcodone/acetaminophen (*CRX) 5-325 MG TABLET 1 TAB PO (14:27)
[2022-10-15 14:41] LABS: Basophils Percent Auto 0.2 % (0.2-1.2); Eosinophils Absolute Auto 0.1 K/mm3 (0-0.3); Eosinophils Percent Auto 0.3 % (0-4.4); Hematocrit 44.8 % (42.0-52.0); Hemoglobin 16.2 g/dL (14.0-18.0); Immature Granulocyte Absolute 0.12 K/mm3 (0.00-0.031); Immature Granulocyte Percent A 0.7 % (0-0.5); Lymphocytes Absolute Auto 0.76 K/mm3 (0.9-3.2); Lymphocytes Percent Auto 4.2 % (18.3-44.2); Mean Corpuscular HGB Conc 36.2 g/dl (32-36); Mean Corpuscular Volume 91.2 fl (80-100); Monocytes Absolute Auto 1.3 K/mm3 (0.1-0.6); Monocytes Percent Auto 7.1 % (2.6-8.5); Neutrophils Absolute Auto 15.9 K/mm3 (1.3-6.7); Neutrophils Percent Auto 87.5 % (45.5-73.1); Platelet Count Result 158 k/mm3 (150-375); Red Blood Count 4.91 M/mm3 (4.6-6.20); Red Cell Distribution Width 12.6 % (11.5-14.5); White Blood Count 18.2 K/mm3 (4.5-10.0)
[2022-10-15 14:59] LABS: CRP 7.3 mg/dL (<1.0)
[2022-10-15 15:39] LABS: Erythrocyte Sedimentation Rate 1 mm/hr (0-20)
[2022-10-15] MEDS: SULFAMETHOXAZOLE/TRIMETHOPRIM 800/160 MG DS TABLET 1 TAB PO (16:48)
[2022-10-15 16:57] VITALS: BP 110/71; PULSE 69; RESP 15; O2SAT 99
== END 2022-10-15 16:58 | disposition home or self-care (01) ==
PROVIDERS: Emergency Provider Physician Assistant; PCP Family Medicine Adolescent Medicine
DX: M70.42 Prepatellar bursitis, left knee (principal); I10 Essential (primary) hypertension; K21.9 Gastro-esophageal reflux disease without esophagitis
CPT/HCPCS: 36415; 73564; 85025; 85652; 86140; 99283; A9270